=== PATIENT | male | born 1980 | race Caucasian/White ===

== ENCOUNTER 2020-10-29 10:58 | Inpatient (IN) ==
--- NOTE | 2020-10-29 11:03 | Emergency Department Note ---
History of Present Illness General Chief Complaint: Chest Pain Stated Complaint: RIGHT SIDED CHEST PAIN,SWEATING,DIZZY Time Seen by Provider: 10/29/20 11:01 Source: patient Mode of arrival: ambulatory Limitations: no limitations History of Present Illness Provider Complaint: chest pain Onset (ago): hour(s) 1 Duration: constant Pain Location: right chest Pain Radiation: neck Severity: moderate Maximum Pain Intensity: 7 Current Pain Intensity: 3 Quality: + tightness and + heaviness Relieved By: + rest Exacerbated By: + exertion Context: no recent illness, no recent surgery, no recent travel, no trauma/injury or no history of DVT/PE Associated symptoms: + nausea and + diaphoresis; no palpitations, no fever, no cough or no leg swelling Treatments prior to arrival: none Home Medications Medication Instructions Recorded Confirmed Type No Known Home Medications 10/29/20 10/29/20 History Allergies Allergy/AdvReac Type Severity Reaction Status Date / Time No Known Drug Allergies Allergy Unknown NONE Verified 10/29/20 13:46 Past Med/Surg History Medical History (Updated 10/29/20 @ 17:06 by Blake Alfred MD) DARA on CPAP ST elevation (STEMI) myocardial infarction involving left anterior descending coronary artery Surgical History History of arthroscopic knee surgery Family History Grandfather Heart disease Fatal [place] at age 38 Father Hypertension Mother Hypertension Social History Smoking Status: Never smoker Second Hand Exposure: No; Do You Dip or Chew Tobacco: No (Quit 4 years ago); Tobacco Cessation Education Requested by Patient: Yes Hx Alcohol Use: Yes Alcohol type: beer Hx Substance Use: No Preferred Language: Yi Communication Ability: Effective Operating Room Aide Required: No Beliefs That Will Affect Care: None Current Living Situation: Spouse and Family Current Living Situation Comment: 2 story home Other Information That Helps Us Care for You: No Feels Safe at Home: Yes Safety Concerns: Feels Safe At This Time Assistive Devices: Contacts and CPAP Review of Systems See HPI for pertinent positives & negatives. and A total of 10 systems reviewed and were otherwise negative Physical Exam Vital Signs Vital Signs - 24 hr 10/29/20 11:03 10/29/20 11:21 10/29/20 11:25 Temperature 37 C Temperature Source Oral Pulse Rate 66 Pulse Rate [Apical] 68 67 Pulse Rate from SpO2 Sensor Pulse Rhythm Regular Pulse Rhythm [Apical] Pulse Strength Normal Pulse Strength [Apical] Respiratory Rate 20 12 11 L Respiratory Effort / Characteristics Non-Labored Spontaneous Respiratory Depth Normal Respiratory Pattern Regular Blood Pressure 144/104 H Blood Pressure [Left Arm] 110/74 111/68 Blood Pressure Mean 117 Blood Pressure Mean [Left Arm] 86 82 Blood Pressure Position Sitting Blood Pressure Position [Left Arm] Pulse Oximetry 96 96 95 Oxygen Delivery Method Room Air Room Air Room Air Sepsis Recent Fever Within 48 Hours No Sepsis New/Unexplained Change in Mental Status N/A Sepsis Action Taken by Nursing No Action Required 10/29/20 11:30 10/29/20 11:35 10/29/20 11:40 Temperature Temperature Source Pulse Rate Pulse Rate [Apical] 65 62 66 Pulse Rate from SpO2 Sensor Pulse Rhythm Pulse Rhythm [Apical] Pulse Strength Pulse Strength [Apical] Respiratory Rate 20 11 L 31 H Respiratory Effort / Characteristics Respiratory Depth Respiratory Pattern Blood Pressure Blood Pressure [Left Arm] 115/80 125/73 123/77 Blood Pressure Mean Blood Pressure Mean [Left Arm] 91 90 92 Blood Pressure Position Blood Pressure Position [Left Arm] Pulse Oximetry 95 94 95 Oxygen Delivery Method Room Air Room Air Room Air Sepsis Recent Fever Within 48 Hours Sepsis New/Unexplained Change in Mental Status Sepsis Action Taken by Nursing 10/29/20 13:15 10/29/20 13:23 Temperature 36.6 C 36.6 C Temperature Source Oral Pulse Rate 79 Pulse Rate [Apical] 76 Pulse Rate from SpO2 Sensor 79 Pulse Rhythm Pulse Rhythm [Apical] Regular Pulse Strength Pulse Strength [Apical] Normal Respiratory Rate 23 25 H Respiratory Effort / Characteristics Non-Labored Respiratory Depth Normal Respiratory Pattern Regular Blood Pressure 137/80 Blood Pressure [Left Arm] 137/80 Blood Pressure Mean 96 Blood Pressure Mean [Left Arm] 99 Blood Pressure Position Blood Pressure Position [Left Arm] Lying Pulse Oximetry 96 98 Oxygen Delivery Method Room Air Sepsis Recent Fever Within 48 Hours Sepsis New/Unexplained Change in Mental Status Sepsis Action Taken by Nursing GENERAL: Diaphoretic, mild distress. EYE EXAM: Normal conjunctiva. PERRL, no anisocoria and EOM's grossly intact w/o pain. OROPHARYNX: Moist mucus membranes. Grossly normal dentition. NECK: Supple, no nuchal rigidity, no adenopathy, non-tender. No signs of meningismus. LUNGS: Clear to auscultation. Normal chest wall mechanics. HEART: NSR, no MRG. ABDOMEN: Abdomen soft, non-tender, normo-active bowel sounds, no masses, no rebound or guarding. BACK: No CVA TTP. SKIN: No rashes and no bruising. UPPER EXTREMITIES: Upper extremities are grossly normal. LOWER EXTREMITIES: Grossly normal, no edema. Negative Homans' sign bilaterally. NEURO EXAM: A&O x3, cranial nerves II-XII grossly intact, normal speech, moves all 4 extremities on command w/o issue. Course Course Cardiac monitoring: An order was placed for continuous cardiac monitoring. The monitor shows a rate of 71 with sinus rhythm. Administered Medications Nitroglycerin (Nitroglycerin Sl 0.4 Mg/Tab Tab) 0.4 mg SL Q5M PRN PRN Reason: Chest Pain Last Admin: 10/29/20 11:19 Dose: 0.4 mg Documented by: [id number] Discontinued Medications Aspirin (Aspirin Chew 324 Mg) Confirm Administered Dose 324 mg .ROUTE .STK-MED ONE Stop: 10/29/20 11:09 Last Admin: 10/29/20 11:09 Dose: 324 mg Documented by: [id number] Aspirin (Aspirin Chew 324 Mg) 324 mg PO NOW STA Stop: 10/29/20 11:10 Last Admin: 10/29/20 11:18 Dose: Not Given Documented by: [id number] Clopidogrel Bisulfate (Clopidogrel Bisulfate 300 Mg Tab) 300 mg PO NOW STA Stop: 10/29/20 11:10 Last Admin: 10/29/20 11:19 Dose: 300 mg Documented by: [id number] Dopamine HCl/Dextrose (Dopamine 400mg / 250ml D5w ([facility] Use Only)) Confirm Administered Dose 400 mg .ROUTE .STK-MED ONE Stop: 10/29/20 12:44 Last Admin: 10/29/20 14:17 Dose: Not Given Documented by: [id number] Eptifibatide (Eptifibatide 2 Mg/Ml 10 Ml Vial ([facility] Use Only)) Confirm Administered Dose 40 mg IV .STK-MED ONE Stop: 10/29/20 12:40 Last Admin: 10/29/20 14:17 Dose: Not Given Documented by: [id number] Eptifibatide (Eptifibatide 2 Mg/Ml 10 Ml Vial ([facility] Use Only)) Confirm Administered Dose 20 mg IV .STK-MED ONE Stop: 10/29/20 12:40 Last Admin: 10/29/20 14:17 Dose: Not Given Documented by: [id number] Fentanyl Citrate (Fentanyl Citrate 100 Mcg/2 Ml Vial) Confirm Administered Dose 100 mcg .ROUTE .STK-MED ONE Stop: 10/29/20 11:29 Last Admin: 10/29/20 14:15 Dose: Not Given Documented by: [id number] Heparin Sodium (Porcine) (Heparin (Porcine) 1000 Unit/Ml 10 Ml ([facility] Use Only)) Confirm Administered Dose 10,000 units .ROUTE .STK-MED ONE Stop: 10/29/20 11:29 Last Admin: 10/29/20 14:16 Dose: Not Given Documented by: [id number] Heparin Sodium (Porcine) (Heparin (Porcine) 1000 Unit/Ml 10 Ml ([facility] Use Only)) Confirm Administered Dose 10,000 units .ROUTE .STK-MED ONE Stop: 10/29/20 12:17 Last Admin: 10/29/20 14:17 Dose: Not Given Documented by: [id number] Heparin Sodium/Sodium Chloride (Heparin In Nss Infusion 1000 Unit/500 Ml (2 U/Ml) Bag) Confirm Administered Dose 3,000 units IV .STK-MED ONE Stop: 10/29/20 11:29 Last Admin: 10/29/20 14:16 Dose: Not Given Documented by: [id number] Sodium Chloride (Nss 1000ml) 1,000 mls @ 100 mls/hr IV .Q10H REBECCA Stop: 11/28/20 13:29 Last Infusion: 10/29/20 15:20 Dose: 0 mls/hr Documented by: [id number] Admin: 10/29/20 14:33 Dose: 100 mls/hr Documented by: [id number] Midazolam HCl (Midazolam Hcl 1 Mg/Ml 2ml Vial) Confirm Administered Dose 2 mg .ROUTE .STK-MED ONE Stop: 10/29/20 11:29 Last Admin: 10/29/20 14:16 Dose: Not Given Documented by: [id number] Nicardipine HCl (Nicardipine Hcl Inj 2.5 Mg/Ml 10 Ml Amp) Confirm Administered Dose 25 mg .ROUTE .STK-MED ONE Stop: 10/29/20 11:29 Last Admin: 10/29/20 14:16 Dose: Not Given Documented by: [id number] Nitroglycerin (Nitroglycerin Sl 0.4 Mg/Tab Tab) Confirm Administered Dose 0.4 mg .ROUTE .STK-MED ONE Stop: 10/29/20 11:09 Last Admin: 10/29/20 11:09 Dose: 0.4 mg Documented by: [id number] Nitroglycerin/Dextrose (Nitroglycerin/D5w 100mcg/Ml 20ml Syr) Confirm Administered Dose 2,000 mcg .ROUTE .STK-MED ONE Stop: 10/29/20 11:29 Last Admin: 10/29/20 14:16 Dose: Not Given Documented by: [id number] Medical Decision Making Differential Diagnosis Cardiac ischemia, aortic dissection, pulmonary embolism, pneumothorax, pneumonia, pericarditis, myocarditis, esophageal rupture, GERD, cholecystitis, pancreatitis, musculoskeletal, as well as other pathologies. Medical Records Attestation: I reviewed the patient's medical records. Home Medications Current Medication List: was personally reviewed by me Laboratory Data Attestation: I reviewed the patient's lab results. Result diagrams: 10/29/20 11:05 10/29/20 11:05 Labs: Lab Results 10/29/20 10/29/20 10/29/20 Range/Units 11:05 11:05 11:05 WBC 7.96 (4.8-10.8) K/uL RBC 5.13 (4.7-6.1) M/uL Hgb 16.5 (14.0-18.0) g/dL POC Hgb (14.0-18.0) g/dl Hct 47.0 (42-52) % POC Hct (42-52) % MCV 91.6 (80-100) fL MCH 32.2 (25-34) pg MCHC 35.1 (32-36) g/dL RDW Std Deviation 40.1 (36.4-46.3) fL RDW Coeff of Lianet 11.9 (11.5-14.5) % Plt Count 261 (130-400) K/uL MPV 9.7 (7.4-10.4) fL Immature Gran % (Auto) 0.3 % Neut % (Auto) 59.6 % Lymph % (Auto) 32.3 % Isabella % (Auto) 6.0 % Eos % (Auto) 1.5 % Baso % (Auto) 0.3 % Neut # (Auto) 4.75 (1.4-6.5) K/uL Lymph # (Auto) 2.57 (1.2-3.4) K/uL Isabella # (Auto) 0.48 (0.11-0.59) K/uL Eos # (Auto) 0.12 (0-0.5) K/uL Baso # (Auto) 0.02 (0-0.2) K/uL Immature Gran # (Auto) 0.02 (0.00-0.02) K/uL PT 10.7 (9.0-12.0) Seconds INR 1.1 (0.9-1.1) APTT 22.3 (21.0-31.0) Seconds PTT Ratio 0.8 Activ Coag Time Kaolin (94-140) SECONDS POC Sodium (135-144) mmol/L Sodium 140 (136-145) mmol/L POC Potassium (3.3-5.0) mmol/L Potassium 4.2 (3.5-5.1) mmol/L POC Chloride (101-112) mmol/L Chloride 107 (98-107) mmol/L Carbon Dioxide 28 (21-32) mmol/L POC Total CO2 (24-31) mmol/L Anion Gap 5.0 (3-11) POC Anion Gap (16-25) mmol/L POC BUN (7-18) mg/dl BUN 17 (7-18) mg/dl Creatinine 1.07 (0.6-1.4) mg/dl POC Creatinine (0.6-1.3) mg/dl Est Cr Clr Drug Dosing 123.5 ml/min Est GFR ( Amer) 100.1 ml/min Est GFR (Non-Af Amer) 86.4 ml/min BUN/Creatinine Ratio 15.5 (10-20) Glucose 125 H (70-99) mg/dl POC Glucose (other) (70-99) mg/dl Calcium 9.1 (8.5-10.1) mg/dl POC Ioniz Calcium Juan Jose (1.12-1.32) mmol/l Magnesium 2.2 (1.8-2.4) mg/dl Total Bilirubin 0.8 (0.2-1) mg/dl AST 17 (15-37) U/L ALT 40 (12-78) U/L Alkaline Phosphatase 75 (45-117) U/L Total Creatine Kinase 176 (39-308) U/L CK-MB (CK-2) 4.0 H (0.5-3.6) ng/ml CK/CKMB % Calc 2.3 (0-3.0) Troponin I 0.261 H* (0-0.045) ng/ml Total Protein 8.0 (6.4-8.2) gm/dl Albumin 4.2 (3.4-5.0) gm/dl Globulin 3.8 (2.5-4.0) gm/dl Albumin/Globulin Ratio 1.1 (0.9-2) Lipase 78 (73-393) U/L TSH 1.200 (0.300-4.500) uIu/ml COVID-19 Eval Order SARS-CoV-2, RNA, NAAT (NEGATIVE) 10/29/20 10/29/20 10/29/20 Range/Units 11:05 11:05 11:14 WBC (4.8-10.8) K/uL RBC (4.7-6.1) M/uL Hgb (14.0-18.0) g/dL POC Hgb 16.3 (14.0-18.0) g/dl Hct (42-52) % POC Hct 48 (42-52) % MCV (80-100) fL MCH (25-34) pg MCHC (32-36) g/dL RDW Std Deviation (36.4-46.3) fL RDW Coeff of Lianet (11.5-14.5) % Plt Count (130-400) K/uL MPV (7.4-10.4) fL Immature Gran % (Auto) % Neut % (Auto) % Lymph % (Auto) % Isabella % (Auto) % Eos % (Auto) % Baso % (Auto) % Neut # (Auto) (1.4-6.5) K/uL Lymph # (Auto) (1.2-3.4) K/uL Isabella # (Auto) (0.11-0.59) K/uL Eos # (Auto) (0-0.5) K/uL Baso # (Auto) (0-0.2) K/uL Immature Gran # (Auto) (0.00-0.02) K/uL PT (9.0-12.0) Seconds INR (0.9-1.1) APTT (21.0-31.0) Seconds PTT Ratio Activ Coag Time Kaolin (94-140) SECONDS POC Sodium 144 (135-144) mmol/L Sodium (136-145) mmol/L POC Potassium 4.3 (3.3-5.0) mmol/L Potassium (3.5-5.1) mmol/L POC Chloride 104 (101-112) mmol/L Chloride (98-107) mmol/L Carbon Dioxide (21-32) mmol/L POC Total CO2 25 (24-31) mmol/L Anion Gap (3-11) POC Anion Gap 20.0 (16-25) mmol/L POC BUN 17 (7-18) mg/dl BUN (7-18) mg/dl Creatinine (0.6-1.4) mg/dl POC Creatinine 1.1 (0.6-1.3) mg/dl Est Cr Clr Drug Dosing ml/min Est GFR ( Amer) ml/min Est GFR (Non-Af Amer) ml/min BUN/Creatinine Ratio (10-20) Glucose (70-99) mg/dl POC Glucose (other) 126 H (70-99) mg/dl Calcium (8.5-10.1) mg/dl POC Ioniz Calcium Juan Jose 1.07 L (1.12-1.32) mmol/l Magnesium (1.8-2.4) mg/dl Total Bilirubin (0.2-1) mg/dl AST (15-37) U/L ALT (12-78) U/L Alkaline Phosphatase (45-117) U/L Total Creatine Kinase (39-308) U/L CK-MB (CK-2) (0.5-3.6) ng/ml CK/CKMB % Calc (0-3.0) Troponin I (0-0.045) ng/ml Total Protein (6.4-8.2) gm/dl Albumin (3.4-5.0) gm/dl Globulin (2.5-4.0) gm/dl Albumin/Globulin Ratio (0.9-2) Lipase (73-393) U/L TSH (0.300-4.500) uIu/ml COVID-19 Eval Order Covid19 [facility] SARS-CoV-2, RNA, NAAT NEGATIVE (NEGATIVE) 10/29/20 10/29/20 Range/Units 12:12 12:36 WBC (4.8-10.8) K/uL RBC (4.7-6.1) M/uL Hgb (14.0-18.0) g/dL POC Hgb (14.0-18.0) g/dl Hct (42-52) % POC Hct (42-52) % MCV (80-100) fL MCH (25-34) pg MCHC (32-36) g/dL RDW Std Deviation (36.4-46.3) fL RDW Coeff of Lianet (11.5-14.5) % Plt Count (130-400) K/uL MPV (7.4-10.4) fL Immature Gran % (Auto) % Neut % (Auto) % Lymph % (Auto) % Isabella % (Auto) % Eos % (Auto) % Baso % (Auto) % Neut # (Auto) (1.4-6.5) K/uL Lymph # (Auto) (1.2-3.4) K/uL Isabella # (Auto) (0.11-0.59) K/uL Eos # (Auto) (0-0.5) K/uL Baso # (Auto) (0-0.2) K/uL Immature Gran # (Auto) (0.00-0.02) K/uL PT (9.0-12.0) Seconds INR (0.9-1.1) APTT (21.0-31.0) Seconds PTT Ratio Activ Coag Time Kaolin 202 H 235 H (94-140) SECONDS POC Sodium (135-144) mmol/L Sodium (136-145) mmol/L POC Potassium (3.3-5.0) mmol/L Potassium (3.5-5.1) mmol/L POC Chloride (101-112) mmol/L Chloride (98-107) mmol/L Carbon Dioxide (21-32) mmol/L POC Total CO2 (24-31) mmol/L Anion Gap (3-11) POC Anion Gap (16-25) mmol/L POC BUN (7-18) mg/dl BUN (7-18) mg/dl Creatinine (0.6-1.4) mg/dl POC Creatinine (0.6-1.3) mg/dl Est Cr Clr Drug Dosing ml/min Est GFR ( Amer) ml/min Est GFR (Non-Af Amer) ml/min BUN/Creatinine Ratio (10-20) Glucose (70-99) mg/dl POC Glucose (other) (70-99) mg/dl Calcium (8.5-10.1) mg/dl POC Ioniz Calcium Juan Jose (1.12-1.32) mmol/l Magnesium (1.8-2.4) mg/dl Total Bilirubin (0.2-1) mg/dl AST (15-37) U/L ALT (12-78) U/L Alkaline Phosphatase (45-117) U/L Total Creatine Kinase (39-308) U/L CK-MB (CK-2) (0.5-3.6) ng/ml CK/CKMB % Calc (0-3.0) Troponin I (0-0.045) ng/ml Total Protein (6.4-8.2) gm/dl Albumin (3.4-5.0) gm/dl Globulin (2.5-4.0) gm/dl Albumin/Globulin Ratio (0.9-2) Lipase (73-393) U/L TSH (0.300-4.500) uIu/ml COVID-19 Eval Order SARS-CoV-2, RNA, NAAT (NEGATIVE) ECG Data Additional Comments: Normal sinus rhythm, rate of 61, normal intervals, normal axis, T wave inversion in lead III, peaked waves anteriorly and laterally. Conc volodymyr for acute STEMI. MDM Narrative Patient was seen due to concern for acute chest pain that began 1 hour prior to arrival. Patient has no pertinent history but the patient does have a concerning story. EKG does show concern for peaked T waves anteriorly with maybe slight elevation of V1. After seeing the EKG a code heartily was initiated. The patient was ordered aspirin Plavix load and nitro. Patient denies any infectious symptoms. The patient only has a history of his grandfather having an [place] in his 30s and passing away. Patient has had a prior history of Covid. No history of DVT or PE. Upon reassessment the patient did have improvement in his chest pain with nitro. The patient did receive the aspirin and Plavix. Patient has a normal white count H&H and platelet count. Kidney function is unremarkable. Troponin is 0.2. I did briefly speak with the interventional is Dr. Gonzalez and the patient was subsequently taken to the [facility]. I did speak with the on-call hospitalist to [facility] and the patient was to be admi tted by Dr. Reddy. Impression & Plan ST elevation (STEMI) myocardial infarction, ACS (acute coronary syndrome) Critical Care Time Critical Care Time: Yes Total Critical Care Time: 35 Discharge Plan Visit Data Chief Complaint: Chest Pain Stated Complaint: RIGHT SIDED CHEST PAIN,SWEATING,DIZZY ED Provider: Blake Alfred Discharge Problem: ST elevation (STEMI) myocardial infarction, ACS (acute coronary syndrome) Patient Disposition: Admitted As Inpatient Discharge Instructions Interventions: ED Discharge Assessment Last Done: 10/29/20 11:43
[2020-10-29] MEDS ORDERED: NITROGLYCERIN SL 0.4 MG/TAB TAB ONE (11:08)
[2020-10-29] MEDS ORDERED: ASPIRIN CHEW 324 MG ONE (11:08)
[2020-10-29] MEDS ORDERED: NITROGLYCERIN SL 0.4 MG/TAB TAB SL PRN (11:09)
[2020-10-29] MEDS ORDERED: ASPIRIN CHEW 324 MG PO STA (11:09)
[2020-10-29] MEDS ORDERED: CLOPIDOGREL BISULFATE 300 MG TAB PO STA (11:09)
[2020-10-29 11:19] LABS: Basophils # (auto) 0.02 K/uL (0-0.2); Basophils % (auto) 0.3 %; Eosinophils # (auto) 0.12 K/uL (0-0.5); Eosinophils % (auto) 1.5 %; Hemoglobin 16.5 g/dL (14.0-18.0); Immature Granulocytes # (auto) 0.02 K/uL (0.00-0.02); Immature Granulocytes % (auto) 0.3 %; Lymphocytes # (auto) 2.57 K/uL (1.2-3.4); Lymphocytes % (auto) 32.3 %; Mean Corpuscular Hemoglobin 32.2 pg (25-34); Mean Corpuscular Hgb Conc 35.1 g/dL (32-36); Mean Corpuscular Volume 91.6 fL (80-100); Mean Platelet Volume 9.7 fL (7.4-10.4); Monocytes # (auto) 0.48 K/uL (0.11-0.59); Neutrophils # (auto) 4.75 K/uL (1.4-6.5); Neutrophils % (auto) 59.6 %; Platelet Count 261 K/uL (130-400); RDW Coefficient of Variation 11.9 % (11.5-14.5); RDW Standard Deviation 40.1 fL (36.4-46.3); Red Blood Count 5.13 M/uL (4.7-6.1); White Blood Count 7.96 K/uL (4.8-10.8)
[2020-10-29 11:27] LABS: iSTAT Creatinine 1.1 mg/dl (0.6-1.3); iSTAT Hemoglobin 16.3 g/dl (14.0-18.0); iSTAT Ionized Calcium 1.07 mmol/l (1.12-1.32); iSTAT Potassium 4.3 mmol/L (3.3-5.0)
[2020-10-29] MEDS ORDERED: NITROGLYCERIN/D5W 100MCG/ML 20ML SYR ONE (11:28)
[2020-10-29] MEDS ORDERED: MIDAZOLAM HCL 1 MG/ML 2ML VIAL ONE (11:28)
[2020-10-29] MEDS ORDERED: fentaNYL citrate 100 MCG/2 ML VIAL ONE (11:28)
[2020-10-29] MEDS ORDERED: HEPARIN (PORCINE) 1000 UNIT/ML 10 ML (CATH LAB USE ONLY) ONE ×2 (11:28→12:16)
[2020-10-29] MEDS ORDERED: niCARdipine HCL INJ 2.5 MG/ML 10 ML AMP ONE (11:28)
[2020-10-29 11:30] LABS: INR 1.1 (0.9-1.1); Partial Thromboplastin Ratio 0.8; Partial Thromboplastin Time 22.3 Seconds (21.0-31.0); Prothrombin Time 10.7 Seconds (9.0-12.0)
[2020-10-29 11:40] LABS: Albumin Level 4.2 gm/dl (3.4-5.0); BUN Creatinine Ratio 15.5 (10-20); Calcium 9.1 mg/dl (8.5-10.1); Creatinine Clr Calc Pharmacy 123.5 ml/min; Est GFR (African American) 100.1 ml/min; Est GFR (Non-African American) 86.4 ml/min; Magnesium 2.2 mg/dl (1.8-2.4); Potassium 4.2 mmol/L (3.5-5.1)
--- NOTE | 2020-10-29 11:49 | Pre Anesthesia Assessment ---
Date of Service October 29, 2020 Pre Sedation Assessment Vital Signs Temp Pulse Pulse Resp BP BP Pulse Ox 10/29/20 11:30 65 20 115/80 95 10/29/20 11:25 67 11 L 111/68 95 10/29/20 11:21 68 12 110/74 96 10/29/20 11:03 98.6 F 66 20 144/104 H 96 Cardiovascular RRR, no murmur, no edema Respiratory normal respiratory effort, lungs clear to auscultation Pre-Sedation Airway Assessment Smoking Status: Never smoker Hx Sleep Apnea: No Hx Difficult Intubation: No Short, Thick Neck: No Thyromental Distance: > or= 3.5 Finger Breadths Oral Cavity: + WNL Mallampati Class: III ASA: ASA3 Procedure Planning Contraindications for Sedation: none Current Medications Reviewed: Yes Notes The planned sedation has been discussed with the patient. Informed Consent was obtained. I have identified the patient, determined the appropriateness of sedation and have assessed the patient immediately prior to the procedure. All medicine(s) and interventions are by my order.
--- NOTE | 2020-10-29 11:54 | Cardiology Consultation ---
Date of Consultation October 29, 2020 Assessment & Plan (1) ACS (acute coronary syndrome): Presentation consistent with high risk acute coronary syndrome and recommend proceeding with urgent cardiac catheterization and likely primary PCI. No apparent contraindications to procedure. Discussed risks, benefits, alternatives of procedure with patient and they are willing to proceed. Given clopidogrel in the ED. Further recommendations pending findings of coronary angiography. History of Present Illness Reason for Consultation: Chest pain Requesting Physician: Tima History of Present Illness 40-year-old man here with acute chest pain and ECG concerning for acute SD. Patient seen emergently in the ED after heart alert activated upon arrival. No prior cardiac history. Cardiac risk factors include reported hypertension and family history of CAD involving a grandfather who had an SD in his 30s. Other medical issues include mild obstructive sleep apnea. He is on no medications. Describes chest pain radiating to his right neck yesterday well chopping wood. Symptoms resolved with rest and did not recur again until this morning when again with exertion developed chest/right neck pain with associated arm numbness and diaphoresis. Pain lasted for approximately an hour before arrival to ED. On ECG had borderline anterior ST elevations with peaked T waves. Given aspirin, nitro and 300 of clopidogrel in ED. Chest pain currently 1 out of 10. Hemodynamically stable. Allergies Allergy/AdvReac Type Severity Reaction Status Date / Time No Known Drug Allergies Allergy Unknown NONE Verified 10/29/20 13:46 Home Medications Medication Instructions Recorded Confirmed Type No Known Home Medications 10/29/20 10/29/20 History Patient History Family History (Updated 10/29/20 @ 11:16 by Blake Alfred MD) Grandfather Heart disease Social History (Updated 10/29/20 @ 11:19 by Blake Alfred MD) Smoking Status: Never smoker Second Hand Exposure: No; Do You Dip or Chew Tobacco: No (Quit 4 years ago); Tobacco Cessation Education Requested by Patient: Yes Hx Alcohol Use: Yes Alcohol type: beer Hx Substance Use: No Preferred Language: Citizen Of [place] Communication Ability: Effective Privacy Compliance Manager Required: No Beliefs That Will Affect Care: None Current Living Situation: Spouse and Family Current Living Situation Comment: 2 story home Other Information That Helps Us Care for You: No Feels Safe at Home: Yes Safety Concerns: Feels Safe At This Time Assistive Devices: Contacts and CPAP Review of Systems Review of Systems: Not completed in the setting of emergent situation Physical Exam Physical Exam: General: Comfortable, no acute distress HEENT: Sclerae anicteric Lungs: Clear to auscultation bilaterally Cardiac: Regular rate and rhythm, no murmurs. Abdomen: Soft, nontender Extremities: Warm, well perfused, no edema. 2+ radial pulses Skin: No rashes or lesions. Neuro: Nonfocal Psych: Alert orient x3, normal affect and mood Results & Data ([facility]) Vital Signs (Past 12 Hours) Vital Signs Temp Pulse Pulse Resp BP BP Pulse Ox 10/29/20 11:30 65 20 115/80 95 10/29/20 11:25 67 11 L 111/68 95 10/29/20 11:21 68 12 110/74 96 10/29/20 11:03 98.6 F 66 20 144/104 H 96 PG Care Time/CCT Total # of Minutes Spent Total Time Spent with Patient: Total time spent is greater than 50% in coordination of care (as documented) at patient's floor/unit and/or counseling patient: Coding Level of Care Code 01607 Inpt Consult Level 5 Diagnoses ACS (acute coronary syndrome) I24.9
[2020-10-29 11:56] LABS: Albumin Globulin Ratio 1.1 (0.9-2); Bilirubin,Total 0.8 mg/dl (0.2-1); Globulin 3.8 gm/dl (2.5-4.0); Thyroid Stimulating Hormone 1.2 uIu/ml (0.300-4.500); Troponin I 0.261 ng/ml (0-0.045)
--- NOTE | 2020-10-29 12:23 | XRay Report ---
XR chest 1V portable CLINICAL HISTORY: Chest pain COMPARISON STUDY: No previous studies for comparison. FINDINGS: No pneumothorax. No definite pleural effusion is seen however evaluation is limited because the right costophrenic ang le is partially outside the [id number]. No large infiltrates or consolidative lesions are seen. Lung volumes are decreased with crowded lung markings. Cardiomediastinal silhouette is within normal limits in size. No significant pulmonary vascular congestion.. Osseous structures: Degenerative changes of the spine. IMPRESSION: 1. No acute pulmonary process. Limited exam. ACT 112: Negative or not required by law. The above report was generated using voice recognition software. It may contain grammatical, syntax o r spelling errors. Electronically signed by: Sherron Woods DO 10/29/2020 12:22 PM
[2020-10-29] MEDS ORDERED: EPTIFIBATIDE 2 MG/ML 10 ML VIAL (CATH LAB USE ONLY) IV ONE ×2 (12:39)
[2020-10-29] MEDS ORDERED: DOPamine 400MG / 250ML D5W (Cath Lab Use ONLY) ONE (12:43)
[2020-10-29] MEDS ORDERED: ONDANSETRON INJ 2 MG/ML 2 ML VIAL IV PRN (13:21)
[2020-10-29] MEDS ORDERED: ICU PROTOCOL FOR HYPERGLYCEMIA PRN (13:26)
[2020-10-29] MEDS ORDERED: SODIUM CHLORIDE 0.9% 1000ML 1,000 ML IV SCH (13:30)
--- NOTE | 2020-10-29 15:01 | Post Anesthesia Assessment ---
Date of Service October 29, 2020 Post Sedation Assessment Vital Signs Temp Pulse Pulse Resp BP BP Pulse Ox 10/29/20 14:16 85 27 H 139/84 97 10/29/20 14:00 82 30 H 142/89 H 98 10/29/20 13:23 97.8 F 76 25 H 137/80 98 10/29/20 13:15 97.8 F 79 23 137/80 96 10/29/20 11:40 66 31 H 123/77 95 10/29/20 11:35 62 11 L 125/73 94 10/29/20 11:30 65 20 115/80 95 10/29/20 11:25 67 11 L 111/68 95 10/29/20 11:21 68 12 110/74 96 10/29/20 11:03 98.6 F 66 20 144/104 H 96 Recovery Score Activity: Moves 4 extremities Respiration: Deep Breath/Cough Circulation: +/-20% PreAnes Value Consciousness: Fully Awake Oxygen Saturation: O2 needed for >90% Discharge Sedation Level of Care: Fast Track Phase II Post Sedation Plan On clinical assessment, the patient appears to have tolerated the sedation without complications. Patient is recovering as anticipated. Patient will continue to be monitored by nursing and may be discharged when sedation discharge criteria are met per below protocol. Upon Completions of procedure up to 15 minutes continue every 5 minute vital signs and the P.A.R. score; then discharge to a Phase I or Fast Track to Phase II per the following guidelines: * Discharge Patient to appropriate Phase II area if PAR is 8 or greater or return to pre- procedure baseline. The post - procedure orders will be as directed. * If PAR score is less than 8 or not return to pre-procedure baseline then patient will follow Phase I monitoring till PAR is reached for Phase II. The Phase I may be done in procedure room or may call to secure a Phase I area. * If naloxone or flumazenil are used for reversal, hold in Phase I for continued monitoring from when last reversal dose was given for a minimum of 60 minutes or longer pending the nurse and/or physician discretion of patient condition before discharge to Phase II. Please call the Sedation Physician to re-evaluate and complete post-note for discharge to Phase II area. Do NOT discharge from procedure sedation or Phase 1 until post- sedation evaluation note is complete by procedure /sedation MD Sedation Discharge Instructions to be given to the patient at discharge to home.
--- NOTE | 2020-10-29 15:08 | History & Physical Report ---
Date of Service October 29, 2020 Assessment & Plan (1) ACS (acute coronary syndrome): Plan: -Admitted to ICU post cardiac cath -Presented to ED with reports of right-sided chest, neck, axilla pain. EKG showed borderline anterior ST elevations with peaked T waves. Heart alert called and patient taken to cardiac Commercial Real Estate Sales Manager emergently. Received 2 NEHEMIAH to LAD, also noted to have RCA disease, likely will return to cardiac Commercial Real Estate Sales Manager for staged cardiac cath for treatment of RCA disease. -ASA, ticagrelor, metoprolol, lisinopril, atorvastatin, ordered by interventional cardiology -Echo, trend troponin -[facility] cardiology consult to follow along (2) DARA on CPAP: Plan: -CPAP as per home settings (3) DVT prophylaxis: Plan: -SCDs Admission and Anticipated Discharge Date Admission Date: October 29, 2020 History of Present Illness Chief Complaint: Chest pain Primary Care Provider: Richi Mitchell MD 40-year-old male with PMH DARA on CPAP and other problems listed below who presents the ED for evaluation of chest pain. Patient reports that yesterday he was chopping wood when he developed a right-sided neck pain. He thought it was secondary to his activity. This morning, patient started chopping wood again and the right side neck pain returned. He reports he then developed a right- sided chest pain with radiation to the right axilla. Patient reports associated diaphoresis and shortness of breath. Denies nausea, lightheadedness, dizziness, syncopal event. He then presented to the ED for further evaluation. In the ED, EKG showed borderline anterior ST elevations with peaked T waves. Heart alert was called and patient was taken to cardiac Commercial Real Estate Sales Manager for emergent catheterization. He received 2 drug-eluting stents to LAD. He was also noted to have RCA disease as well. Likely will return to Commercial Real Estate Sales Manager for staged cardiac cath to treat RCA disease. Patient was seen and examined in the ICU post cardiac cath. Denies chest pain. He is hemodynamically stable. Patient reports he otherwise has been feeling well recently. No other recent illnesses, fevers, chills. Denies abdominal pain, vomiting, diarrhea. No urinary symptoms. Allergies Allergy/AdvReac Type Severity Reaction Status Date / Time No Known Drug Allergies Allergy Unknown NONE Verified 10/29/20 13:46 Home Medications Medication Instructions Recorded Confirmed Type No Known Home Medications 10/29/20 10/29/20 History Past Med/Surg History Medical History (Updated 10/29/20 @ 15:42 by Flako Diaz MD) DARA on CPAP ST elevation (STEMI) myocardial infarction involving left anterior descending coronary artery Surgical History History of arthroscopic knee surgery Family History Grandfather Heart disease Fatal [place] at age 38 Father Hypertension Mother Hypertension Social History Smoking Status: Never smoker Second Hand Exposure: No; Do You Dip or Chew Tobacco: No (Quit 4 years ago); Tobacco Cessation Education Requested by Patient: Yes Hx Alcohol Use: Yes Alcohol type: beer Hx Substance Use: No Preferred Language: Armenian Communication Ability: Effective Aix Architect Required: No Beliefs That Will Affect Care: None Current Living Situation: Spouse and Family Current Living Situation Comment: 2 story home Other Information That Helps Us Care for You: No Feels Safe at Home: Yes Safety Concerns: Feels Safe At This Time Assistive Devices: Contacts and CPAP Review of Systems Review of Systems: ROS per HPI, all other systems reviewed and negative Physical Exam Constitutional: WD/WN, vitals as above Eyes: PERRL, conjunctivae normal, anicteric sclerae ENMT: external ear and nose normal, oropharynx normal Respiratory: normal respiratory effort, lungs clear to auscultation Cardiovascular: Rate/Rhythm: regular rate and regular rhythm Vessels: normal peripheral pulses Extremities: no edema Gastrointestinal (Abdomen): normal bowel sounds, soft, nontender, no hepatosplenomegaly Musculoskeletal: no cyanosis or clubbing, extremities motor strength 5/[address] to right wrist, CSM checks intact Skin: no rashes, warm and dry Neurologic: PERRL, EOMI, accommodation nl, no face palsy, no dysarthria Psychiatric: A+Ox3, euthymic affect Results & Data Results & Data ([facility]) Vital Signs (Past 12 Hours) Vital Signs Temp Pulse Pulse Resp BP BP Pulse Ox 10/29/20 14:16 85 27 H 139/84 97 10/29/20 14:00 82 30 H 142/89 H 98 10/29/20 13:23 36.6 C 76 25 H 137/80 98 10/29/20 13:15 36.6 C 79 23 137/80 96 10/29/20 11:40 66 31 H 123/77 95 10/29/20 11:35 62 11 L 125/73 94 10/29/20 11:30 65 20 115/80 95 10/29/20 11:25 67 11 L 111/68 95 10/29/20 11:21 68 12 110/74 96 10/29/20 11:03 37 C 66 20 144/104 H 96 Laboratory Results Short CBC 10/29/20 Range/Units 11:05 WBC 7.96 (4.8-10.8) K/uL Hgb 16.5 (14.0-18.0) g/dL Hct 47.0 (42-52) % Plt Count 261 (130-400) K/uL BMP 10/29/20 11:05 Sodium 140 Potassium 4.2 Chloride 107 Carbon Dioxide 28 BUN 17 Creatinine 1.07 Glucose 125 H Calcium 9.1 Cardiac Enzymes 10/29/20 Range/Units 11:05 Total Creatine Kinase 176 (39-308) U/L CK-MB (CK-2) 4.0 H (0.5-3.6) ng/ml Troponin I 0.261 H* (0-0.045) ng/ml Liver Function 10/29/20 Range/Units 11:05 Total Bilirubin 0.8 (0.2-1) mg/dl AST 17 (15-37) U/L ALT 40 (12-78) U/L Alkaline Phosphatase 75 (45-117) U/L Albumin 4.2 (3.4-5.0) gm/dl Diagnostic Findings Chest X-Ray 10/29/20 11:09 XR chest 1V portable CLINICAL HISTORY: Chest pain COMPARISON STUDY: No previous studies for comparison. FINDINGS: No pneumothorax. No definite pleural effusion is seen however evaluation is limited because the right costophrenic angle is partially outside the roeio-lt-kerc. No large infiltrates or consolidative lesions are seen. Lung volumes are decreased with crowded lung markings. Cardiomediastinal silhouette is within normal limits in size. No significant pulmonary vascular congestion.. Osseous structures: Degenerative changes of the spine. IMPRESSION: 1. No acute pulmonary process. Limited exam. ACT 112: Negative or not required by law. The above report was generated using voice recognition software. It may contain grammatical, syntax or spelling errors. Electronically signed by: Sherron Woods DO 10/29/2020 12:22 PM Code Status & VTE Plan VTE Prophylaxis Plan VTE Prophylaxis will be ordered: Yes Supervising Physician Co-Signing Physician Notes Attending addendum: The patient was seen and examined in ICU Is status post cardiac cath with 2 NEHEMIAH placement in LAD for acute possible ST elevation SC Has been feeling better and denies any chest pain and/or palpitation or shortness of breath On examination Remains stable in ICU Cardiac cath site at the right wrist seems to be stable Chest-clear to auscultate bilaterally HeartS1, S2 regular, no murmur appreciated Abdomen-benign Extremities-negative for any edema FLOOR LAYER HELPER-alert, awake and oriented x3. No focal sensory and motor deficit appreciated His admission labs, EKG and imaging studies reviewed Has acute ST elevation SC with hyperacute T wave Status post cardiac cath as above with NEHEMIAH placement in LAD Has been getting appropriate treatment with dual antiplatelet Will have repeat cath tomorrow to fix the RCA disease Reviewed assessment and plan as outlined above by Emili Reddy
--- NOTE | 2020-10-29 15:22 | Cardiac Catheterization ---
[facility] Data: [facility] Cardiac Status Clinical evaluation leading to the procedure CAD Presenation: STEMI Anginal Classification: CCS IV Heart Failure: No Cardiogenic Shock within 24 Hours: No Cardiac Arrest within 24 Hours: No Imaging Studies Past 6 Months: No Stress Studies Past 6 Months: No Diagnostic Physicians Name: Manoj Gonzalez MD Status: Emergency Closure Device Percutaneous Entry Location: Radial Closure Device: Radial Band Recommendations: PCI without planned CABG PCI Indication: Immediate PCI for STEMI First Noted: First EKG Lesion Segment Name: Mid LAD Culprit Artery: Yes Stenosis Prior to Rx (%): 100 Chronic Total Occlusion: No IVUS: No FFR: No Pre-Procedure RUDDY Flow: 0 Previously Treated Lesion: No Lesion Complexity: High/C Lesion Length (mm): 50 Thrombus Present: Yes Bifurcation Lesion: Yes Guidewire Across Lesion: Stenosis Post-Procedure (%): 0 Post-Procedure RUDDY Flow: 3 Devices(s) Deployed: Yes Yes Intraprocedure Events Significant Disection: No Perforation: No Cardiac Cath Procedure Full Procedure Date October 29, 2020 Pre-Procedure Diagnosis Pre-Procedure Diagnosis: STEMI AUC Score AUC Score: 9 Post-Procedure Diagnosis Post-Procedure Diagnosis: Severe CAD, Successful PCI and Elevated Intracardiac Pressures Procedure(s) Performed Procedure(s) Performed: Coronary Angiography, Left Heart Cath, Drug Eluting Stent and IVUS Outpatient Receptionist Manoj Gonzalez MD Talent Acquisition Manager(s) Elijah Estimated Blood Loss Estimated Blood Loss: 10 Medication(s) Medication(s): Clopidogrel, Fentanyl, Heparin, Integrilin, Lidocaine 1%, Nicardipine, Nitroglycerin and Versed Summary of Findings Indication: STEMI/Heart Alert Access: 6 Fr right radial artery Catheters: 5 Fr EBU 3.5 guide (unable to pass 6 Fr guide due to right brachial artery spasm), diagnostic JR4 Findings: LM -medium caliber, no significant disease LAD -medium caliber, mild diffuse proximal disease, acute 100% mid occlusion at takeoff of small D1. 80% ostial D1 Circumflex -large caliber, 20 to 30% proximal disease. Small OM 2 with mild disease. Large left PLB without disease. RCA -dominant, medium caliber, 50% mid stenosis, 40% earlydistal stenosis. 95% focal stenosis in proximal right posterior AV branch LVEDP - 22 -- PCI -- Antithrombotic therapy: Heparin, Integrilin, clopidogrel Procedure: Left main cannulated with a 5 Fr EBU 3.5 guide Manager Pe 50 wire passed across lesion into distal vessel Mid LAD lesion predilated with 2.5 compliant balloon and flow reestablished. Noted to have diffuse mid LAD disease. [facility] IVUS catheter placed into distal LAD. Pullback revealed extensive, diffuse calcified disease from late distal segment back to proximal LAD LAD further dilated with 3.0 balloon Latemid LAD stented with 2.5 x 30 mm Ronald drug-eluting stent Proximal to mid LAD stented with 3.0 x 38 mm Ronald drug-eluting stent overlapping with proximal aspect of initial stent. After stent placement had slow flow in apical LAD thought secondary to distal embolus. Given IC vasodilators and Integrilin. Stents post-dilated with 3.5 noncompliant balloon Additional IC vasodilators administered for spasm Post procedure RUDDY 3 flow, stent well expanded with minimal residual stenosis and no apparent cardiac complications. Arterial Closure: TR band Summary: 1. Anterior STEMI/100% acute mid LAD occlusion. Severe proximal to mid LAD disease by IVUS. 2. Multivessel nonculprit coronary artery disease -50% mid RCA, 95% right posterior AV branch 30% proximal circumflex 3. Elevated intracardiac filling pressure 4. Successful PCI of proximal to late-mid LAD with 2 overlapping drug-eluting stents (3.0 x 38, 2.5 x 30 Belk; postdilated with 3.5 NC). Recommendations: Admit to ICU for continued monitoring Loaded with clopidogrel 300 in ED, given another 300 mg in [facility] Continue dual-antiplatelet therapy for at least 1 year. Trend troponins until peak, Check Echo Uptitrate beta-princess/LUCI as BP allows High-dose statin Consult cardiac Rehab Possible staged PCI of right posterior AV branch later this hospitalization. Hemodynamics Rest Ao:: 114/82/92 Final Ao: 105/78/93 LV: 102/22 Recommendations Recommendations: PCI without planned CABG Specimens Specimens: None Radiation Exposure (mGy) 3756 Contrast (mls) 95 Fluids (cc crystalloids) Fluids (cc crystalloids): 400 Drains Drains: none Anesthesia moderate 7907-9113 Procedural Complication(s) None Disposition ICU I attest to the content of the Intraoperative Record and any orders documented therein. Any exceptions are noted below. [employer] Card Cath Procedure Codes Cardiac Catheterization Procedure 1: Cardiovascular Cath Procedures: 62276 Coronaries and LHC (+/-LV) Therapeutic Services & Ancillary Proc Procedure 1: Cardiovascular Tx and Anc Procedures: 63272 IV Ultrasound (Coronary or Graft) Moderate Sedation Procedure 1: Sedation/Anesthesia: 92725 Mod Sedation by the same physician;Init15 Min Child Age 5 & Up Procedure 2: Sedation/Anesthesia: 22396 Mod Sedation by the same physician; Ea [id number] Minutes Stenting Procedure 1: Cardiovascular Stent Procedures: 80796 Perc transluminal revascularization of acute sub/total occl, aMI PG Care Time/CCT Total # of Minutes Spent Total Time Spent with Patient: Total time spent is greater than 50% in co ordination of care (as documented) at patient's floor/unit and/or counseling patient:
--- NOTE | 2020-10-29 15:46 | Critical Care Consultation ---
Date of Consultation October 29, 2020 Assessment & Plan (1) ST elevation (STEMI) myocardial infarction involving left anterior descending coronary artery: 40-year-old male with a history of obesity and hypertension who is in the ICU now status post PCI x2 to the mid LAD. Patient is stable at present. Continue dual antiplatelet therapy. Cardiology changed his antiplatelet from Plavix to Brilinta. Continue with metoprolol, lisinopril and high-dose atorvastatin. He will need an echocardiogram. He will undergo repeat cardiac catheterization tomorrow to evaluate for the possibility of further stenting. We will keep a close eye on his urine output and creatinine. N.p.o. after midnight. Check lipid profile, trend troponins and check A1c. He does have a history of obstructive sleep apnea. His will bring the CPAP device. Thank you for the consultation. ICU team will continue to monitor while he remains in the ICU. (2) ACS (acute coronary syndrome): (3) DARA on CPAP: History of Present Illness Reason for Consultation: Post STEMI ICU monitoring Attending Physician: Jimbo Reddy MD History of Present Illness 40-year-old male with a history of obesity and obstructive sleep apnea who presented to the hospital with chest pain. He was found to have a STEMI in the anterior distribution and underwent catheterization of his left heart. Acute LAD occlusion was noted. Severe proximal to mid LAD was discovered by intravascular ultrasound. Patient underwent 2 overlapping stents to the proximal to late mid LAD. He was loaded with clopidogrel in the ER. He has a 50% mid RCA 95% right posterior AV branch blockage noted as well. He may undergo left heart catheterization tomorrow as well for further stenting per cardiology. He noted right-sided neck pain yesterday while lifting more than splitting wood. Today he was splitting more wood and noticed a twinge of pain behind his right shoulder. The pain became more progressive and severe was mostly localized on the right side of his neck which then radiated down to his right chest. His is present during the visit. She gave him Benadryl under the presumption that he was bit by an insect and was having an allergic reaction. She noted that they were considering going to urgent care versus the emergency department. He was feeling very dizzy and sweaty and they ultimately decided to go to the ER. His pain has subsided substantially now. He noted that it even hurt to touch his right neck during the episode of pain. Allergies Allergy/AdvReac Type Severity Reaction Status Date / Time No Known Drug Allergies Allergy Unknown NONE Verified 10/29/20 13:46 Home Medications Medication Instructions Recorded Confirmed Type No Known Home Medications 10/29/20 10/29/20 History Patient History Medical History (Updated 10/29/20 @ 15:42 by Flako Diaz MD) DARA on CPAP ST elevation (STEMI) myocardial infarction involving left anterior descending coronary artery Surgical History History of arthroscopic knee surgery Family History Grandfather Heart disease Fatal [place] at age 38 Father Hypertension Mother Hypertension Social History Smoking Status: Never smoker Second Hand Exposure: No; Do You Dip or Chew Tobacco: No (Quit 4 years ago); Tobacco Cessation Education Requested by Patient: Yes Hx Alcohol Use: Yes Alcohol type: beer Hx Substance Use: No Preferred Language: Belarusian Communication Ability: Effective Palm Gatherer Required: No Beliefs That Will Affect Care: None Current Living Situation: Spouse and Family Current Living Situation Comment: 2 story home Other Information That Helps Us Care for You: No Feels Safe at Home: Yes Safety Concerns: Feels Safe At This Time Assistive Devices: Contacts and CPAP Review of Systems Review of Systems: All systems reviewed & are unremarkable except as noted in HPI & below Physical Exam Physical Exam: Constitutional: Patient appears to be of their stated age. Patient is in no apparent distress. Patient is obese. Eyes: Pupils are equal round and reactive to light. Conjunctivae are normal. Anicteric sclera. Ears nose, mouth and throat: Normal posterior oropharynx. Uvula is midline. Neck: Trachea is midline. Visual inspection is normal. Respiratory: Clear to auscultation bilaterally. No use of accessory muscles. No significant clubbing noted. Cardiovascular: Regular rate and rhythm. No murmurs. No edema. Gastrointestinal: Normal bowel sounds, soft, nontender and nondistended. No hepatosplenomegaly noted. Musculoskeletal: No cyanosis. Patient is able to move all extremities. Strength is 5 out of 5 in the upper and lower extremities. Skin: No rashes, warm dry and intact. Neurologic: No obvious focal neurological deficits seen. Psychiatric: Alert and oriented x3 with a euthymic affect. Results & Data Results & Data ([facility]) Vital Signs (Past 12 Hours) Vital Signs Temp Pulse Pulse Resp BP BP Pulse Ox 10/29/20 14:16 85 27 H 139/84 97 10/29/20 14:00 82 30 H 142/89 H 98 10/29/20 13:23 97.8 F 76 25 H 137/80 98 10/29/20 13:15 97.8 F 79 23 137/80 96 10/29/20 11:40 66 31 H 123/77 95 10/29/20 11:35 62 11 L 125/73 94 10/29/20 11:30 65 20 115/80 95 10/29/20 11:25 67 11 L 111/68 95 10/29/20 11:21 68 12 110/74 96 10/29/20 11:03 98.6 F 66 20 144/104 H 96 Vital signs, labs and imaging personally reviewed. Coding Level of Care Code 54898 Inpt Consult Level 4 Diagnoses ACS (acute coronary syndrome) I24.9 DARA on CPAP G47.33; Z99.89 ST elevation (STEMI) myocardial infarction involving left anterior descending coronary artery I21.02
[2020-10-29 16:28] LABS: Appearance Urine Clear (Clear); Bacteria Urine Automated Negative (Negative); Bilirubin Urine Negative (Negative); Blood Urine Negative (Negative); Color Urine Yellow; Glucose Urine UA Negative (Negative); Ketones Urine Negative (Negative); Leukocyte Esterase Urine Negative (Negative); Nitrite Urine Negative (Negative); Protein Urine 1+ (Negative); RBC Urine Automated 0-4 /hpf (0-4); Specific Gravity Urine 1.044 (1.000-1.030); Urobilinogen Urine Negative (Negative); pH Urine 5.5 (4.5-7.5)
[2020-10-29] MEDS: METOPROLOL TARTRATE 25 MG TAB PO SCH (20:42)
[2020-10-30 05:12] LABS: Hematocrit (blood only) 43.6 % (42-52); Mean Corpuscular Hemoglobin 32.2 pg (25-34); Mean Corpuscular Hgb Conc 34.4 g/dL (32-36); Mean Corpuscular Volume 93.6 fL (80-100); Mean Platelet Volume 9.6 fL (7.4-10.4); Platelet Count 218 K/uL (130-400); RDW Coefficient of Variation 12.2 % (11.5-14.5); RDW Standard Deviation 41.3 fL (36.4-46.3); Red Blood Count 4.66 M/uL (4.7-6.1); White Blood Count 12.66 K/uL (4.8-10.8)
[2020-10-30 05:32] LABS: BUN Creatinine Ratio 14.5 (10-20); Calcium 8.2 mg/dl (8.5-10.1); Creatinine Clr Calc Pharmacy 132.7 ml/min; Est GFR (Non-African American) 94.9 ml/min; Magnesium 2.1 mg/dl (1.8-2.4); Potassium 4.2 mmol/L (3.5-5.1)
[2020-10-30 05:35] LABS: Phosphorus 3.3 mg/dl (2.5-4.9)
[2020-10-30 07:46] LABS: Estimated Average Glucose 111 mg/dl; Hemoglobin A1C 5.5 % (4.5-5.6)
[2020-10-30] MEDS ORDERED: TICAGRELOR 90 MG TAB PO SCH (08:00)
[2020-10-30] MEDS: ASPIRIN 81 MG ECTAB PO SCH (08:05)
[2020-10-30] MEDS: METOPROLOL TARTRATE 25 MG TAB PO SCH ×2 (08:06→20:34)
[2020-10-30] MEDS: ATORVASTATIN 40 MG TAB PO SCH (08:06)
[2020-10-30] MEDS: lisinopril 5 MG TAB PO SCH (08:06)
--- NOTE | 2020-10-30 08:17 | Electrocardiogram Report ---
Test Reason : Blood Pressure : / mmHG Vent. Rate : 061 BPM Atrial Rate : 061 BPM P-R Int : 126 ms QRS Dur : 100 ms QT Int : 394 ms P-R-T Axes : 048 016 018 degrees QTc Int : 396 ms Normal sinus rhythm Acute Anterior infarct Nondiagnostic inferior Q waves Abnormal ECG No previous ECGs available Confirmed by Luke Cifuentes ([id number]) on 10/30/2020 8:17:09 AM Referred By: REFERRED SELF Confirmed By:Luke Cifuentes
--- NOTE | 2020-10-30 08:49 | Electrocardiogram Report ---
Test Reason : Blood Pressure : / mmHG Vent. Rate : 072 BPM Atrial Rate : 072 BPM P-R Int : 156 ms QRS Dur : 104 ms QT Int : 388 ms P-R-T Axes : 056 007 007 degrees QTc Int : 424 ms Normal sinus rhythm Possible Inferior infarct (cited on or before 29-OCT-2020) Evolving Anterior infarct (cited on or before 29-OCT-2020) Abnormal ECG When compared with ECG of 29-OCT-2020 11:03, No significant change was found Confirmed by Luke Cifuentes ([id number]) on 10/30/2020 8:49:23 AM Referred By: REFERRED SELF Confirmed By:Luke Cifuentes
--- NOTE | 2020-10-30 09:42 | Critical Care Progress Note ---
Date of Service October 30, 2020 Assessment & Plan (1) ST elevation (STEMI) myocardial infarction involving left anterior desc ending coronary artery: Plan: 40-year-old male with a history of obesity and hypertension who is in the ICU now status post PCI x2 to the mid LAD. ST elevation DE -Plan second stage later today -Continue current therapies (2) ACS (acute coronary syndrome): (3) DARA on CPAP: Admission and Anticipated Discharge Date Admission Date: October 29, 2020 Subjective No overnight events Physical Exam Physical Exam: General: Alert. nontoxic. Skin: Warm, dry, Head: Atraumatic Ears, nose, mouth and throat: airway patent Cardiovascular: Normal peripheral perfusion Respiratory: no respiratory distress Gastrointestinal: Non distended Musculoskeletal: No deformity Results & Data Results & Data ([facility]) Vital Signs (Past 12 Hours) Vital Signs Temp Pulse Resp BP Pulse Ox 10/30/20 06:00 80 19 124/81 95 10/30/20 05:00 77 21 126/80 95 10/30/20 04:00 36.8 C 73 18 126/80 96 10/30/20 03:00 72 18 125/83 96 10/30/20 02:00 71 17 128/82 96 10/30/20 01:00 72 19 124/79 96 10/30/20 00:00 36.8 C 72 19 129/78 96 10/29/20 23:00 71 21 126/83 95 10/29/20 22:00 74 23 133/76 95 Laboratory Results 10/30/20 10/30/20 10/30/20 Range/Units 04:51 04:51 04:51 WBC 12.66 H (4.8-10.8) K/uL RBC 4.66 L (4.7-6.1) M/uL Hgb 15.0 (14.0-18.0) g/dL POC Hgb (14.0-18.0) g/dl Hct 43.6 (42-52) % POC Hct (42-52) % MCV 93.6 (80-100) fL MCH 32.2 (25-34) pg MCHC 34.4 (32-36) g/dL RDW Std Deviation 41.3 (36.4-46.3) fL RDW Coeff of Lianet 12.2 (11.5-14.5) % Plt Count 218 (130-400) K/uL MPV 9.6 (7.4-10.4) fL Immature Gran % (Auto) % Neut % (Auto) % Lymph % (Auto) % [place] % (Auto) % Eos % (Auto) % Baso % (Auto) % Neut # (Auto) (1.4-6.5) K/uL Lymph # (Auto) (1.2-3.4) K/uL [place] # (Auto) (0.11-0.59) K/uL Eos # (Auto) (0-0.5) K/uL Baso # (Auto) (0-0.2) K/uL Immature Gran # (Auto) (0.00-0.02) K/uL PT (9.0-12.0) Seconds INR (0.9-1.1) APTT (21.0-31.0) Seconds PTT Ratio Activ Coag Time Kaolin (94-140) SECONDS POC Sodium (135-144) mmol/L Sodium 139 (136-145) mmol/L POC Potassium (3.3-5.0) mmol/L Potassium 4.2 (3.5-5.1) mmol/L POC Chloride (101-112) mmol/L Chloride 108 H (98-107) mmol/L Carbon Dioxide 27 (21-32) mmol/L POC Total CO2 (24-31) mmol/L Anion Gap 4.0 (3-11) POC Anion Gap (16-25) mmol/L POC BUN (7-18) mg/dl BUN 14 (7-18) mg/dl Creatinine 0.99 (0.6-1.4) mg/dl POC Creatinine (0.6-1.3) mg/dl Est Cr Clr Drug Dosing 132.7 ml/min Est GFR ( Amer) 110.0 ml/min Est GFR (Non-Af Amer) 94.9 ml/min BUN/Creatinine Ratio 14.5 (10-20) Glucose 109 H (70-99) mg/dl POC Glucose (70-99) mg/dl POC Glucose (other) (70-99) mg/dl Estimat Average Glucose 111 mg/dl Hemoglobin A1c 5.5 (4.5-5.6) % Calcium 8.2 L (8.5-10.1) mg/dl POC Ioniz Calcium Juan Jose (1.12-1.32) mmol/l Phosphorus 3.3 (2.5-4.9) mg/dl Magnesium 2.1 (1.8-2.4) mg/dl Total Bilirubin (0.2-1) mg/dl AST (15-37) U/L ALT (12-78) U/L Alkaline Phosphatase (45-117) U/L Total Creatine Kinase (39-308) U/L CK-MB (CK-2) (0.5-3.6) ng/ml CK/CKMB % Calc (0-3.0) Troponin I (0-0.045) ng/ml Total Protein (6.4-8.2) gm/dl Albumin (3.4-5.0) gm/dl Globulin (2.5-4.0) gm/dl Albumin/Globulin Ratio (0.9-2) Triglycerides 354 H (0-150) mg/dl Cholesterol 205 H (0-200) mg/dl LDL Cholesterol, Calc 102 mg/dl VLDL Cholesterol, Calc 71 mg/dl HDL Cholesterol 32 mg/dl Cholesterol/HDL Ratio 6 Lipase (73-393) U/L TSH (0.300-4.500) uIu/ml Urine Color Urine Appearance (Clear) Urine pH (4.5-7.5) Ur Specific [place] (1.000-1.030) Urine Protein (Negative) Urine Glucose (UA) (Negative) Urine Ketones (Negative) Urine Blood (Negative) Urine Nitrite (Negative) Urine Bilirubin (Negative) Urine Urobilinogen (Negative) Ur Leukocyte Esterase (Negative) Urine WBC (Auto) (0-5) /hpf Urine RBC (Auto) (0-4) /hpf U Hyaline Cast (Auto) (0-5) /lpf U Epithel Cells (Auto) (0-5) /lpf Urine Bacteria (Auto) (Negative) Nasal Screen MRSA (PCR) (Negative) COVID-19 Eval Order SARS-CoV-2, RNA, NAAT (NEGATIVE) 10/29/20 10/29/20 10/29/20 Range/Units Unknown 23:21 18:20 WBC (4.8-10.8) K/uL RBC (4.7-6.1) M/uL Hgb (14.0-18.0) g/dL POC Hgb (14.0-18.0) g/dl Hct (42-52) % POC Hct (42-52) % MCV (80-100) fL MCH (25-34) pg MCHC (32-36) g/dL RDW Std Deviation (36.4-46.3) fL RDW Coeff of Lianet (11.5-14.5) % Plt Count (130-400) K/uL MPV (7.4-10.4) fL Immature Gran % (Auto) % Neut % (Auto) % Lymph % (Auto) % [place] % (Auto) % Eos % (Auto) % Baso % (Auto) % Neut # (Auto) (1.4-6.5) K/uL Lymph # (Auto) (1.2-3.4) K/uL [place] # (Auto) (0.11-0.59) K/uL Eos # (Auto) (0-0.5) K/uL Baso # (Auto) (0-0.2) K/uL Immature Gran # (Auto) (0.00-0.02) K/uL PT (9.0-12.0) Seconds INR (0.9-1.1) APTT (21.0-31.0) Seconds PTT Ratio Activ Coag Time Kaolin (94-140) SECONDS POC Sodium (135-144) mmol/L Sodium (136-145) mmol/L POC Potassium (3.3-5.0) mmol/L Potassium (3.5-5.1) mmol/L POC Chloride (101-112) mmol/L Chloride (98-107) mmol/L Carbon Dioxide (21-32) mmol/L POC Total CO2 (24-31) mmol/L Anion Gap (3-11) POC Anion Gap (16-25) mmol/L POC BUN (7-18) mg/dl BUN (7-18) mg/dl Creatinine (0.6-1.4) mg/dl POC Creatinine (0.6-1.3) mg/dl Est Cr Clr Drug Dosing ml/min Est GFR ( Amer) ml/min Est GFR (Non-Af Amer) ml/min BUN/Creatinine Ratio (10-20) Glucose (70-99) mg/dl POC Glucose 140 H (70-99) mg/dl POC Glucose (other) (70-99) mg/dl Estimat Average Glucose mg/dl Hemoglobin A1c (4.5-5.6) % Calcium (8.5-10.1) mg/dl POC Ioniz Calcium [place] (1.12-1.32) mmol/l Phosphorus (2.5-4.9) mg/dl Magnesium (1.8-2.4) mg/dl Total Bilirubin (0.2-1) mg/dl AST (15-37) U/L ALT (12-78) U/L Alkaline Phosphatase (45-117) U/L Total Creatine Kinase (39-308) U/L CK-MB (CK-2) (0.5-3.6) ng/ml CK/CKMB % Calc (0-3.0) Troponin I 36.100 H* (0-0.045) ng/ml Total Protein (6.4-8.2) gm/dl Albumin (3.4-5.0) gm/dl Globulin (2.5-4.0) gm/dl Albumin/Globulin Ratio (0.9-2) Triglycerides (0-150) mg/dl Cholesterol (0-200) mg/dl LDL Cholesterol, Calc mg/dl VLDL Cholesterol, Calc mg/dl HDL Cholesterol mg/dl Cholesterol/HDL Ratio Lipase (73-393) U/L TSH (0.300-4.500) uIu/ml Urine Color Urine Appearance (Clear) Urine pH (4.5-7.5) Ur Specific [place] (1.000-1.030) Urine Protein (Negative) Urine Glucose (UA) (Negative) Urine Ketones (Negative) Urine Blood (Negative) Urine Nitrite (Negative) Urine Bilirubin (Negative) Urine Urobilinogen (Negative) Ur Leukocyte Esterase (Negative) Urine WBC (Auto) (0-5) /hpf Urine RBC (Auto) (0-4) /hpf U Hyaline Cast (Auto) (0-5) /lpf U Epithel Cells (Auto) (0-5) /lpf Urine Bacteria (Auto) (Negative) Nasal Screen MRSA (PCR) Negative (Negative) COVID-19 Eval Order SARS-CoV-2, RNA, NAAT (NEGATIVE) 10/29/20 10/29/20 10/29/20 Range/Units 16:45 15:30 12:36 WBC (4.8-10.8) K/uL RBC (4.7-6.1) M/uL Hgb (14.0-18.0) g/dL POC Hgb (14.0-18.0) g/dl Hct (42-52) % POC Hct (42-52) % MCV (80-100) fL MCH (25-34) pg MCHC (32-36) g/dL RDW Std Deviation (36.4-46.3) fL RDW Coeff of Lianet (11.5-14.5) % Plt Count (130-400) K/uL MPV (7.4-10.4) fL Immature Gran % (Auto) % Neut % (Auto) % Lymph % (Auto) % [place] % (Auto) % Eos % (Auto) % Baso % (Auto) % Neut # (Auto) (1.4-6.5) K/uL Lymph # (Auto) (1.2-3.4) K/uL [place] # (Auto) (0.11-0.59) K/uL Eos # (Auto) (0-0.5) K/uL Baso # (Auto) (0-0.2) K/uL Immature Gran # (Auto) (0.00-0.02) K/uL PT (9.0-12.0) Seconds INR (0.9-1.1) APTT (21.0-31.0) Seconds PTT Ratio Activ Coag Time Kaolin 235 H (94-140) SECONDS POC Sodium (135-144) mmol/L Sodium (136-145) mmol/L POC Potassium (3.3-5.0) mmol/L Potassium (3.5-5.1) mmol/L POC Chloride (101-112) mmol/L Chloride (98-107) mmol/L Carbon Dioxide (21-32) mmol/L POC Total CO2 (24-31) mmol/L Anion Gap (3-11) POC Anion Gap (16-25) mmol/L POC BUN (7-18) mg/dl BUN (7-18) mg/dl Creatinine (0.6-1.4) mg/dl POC Creatinine (0.6-1.3) mg/dl Est Cr Clr Drug Dosing ml/min Est GFR ( Amer) ml/min Est GFR (Non-Af Amer) ml/min BUN/Creatinine Ratio (10-20) Glucose (70-99) mg/dl POC Glucose (70-99) mg/dl POC Glucose (other) (70-99) mg/dl Estimat Average Glucose mg/dl Hemoglobin A1c (4.5-5.6) % Calcium (8.5-10.1) mg/dl POC Ioniz Calcium [place] Jose (1.12-1.32) mmol/l Phosphorus (2.5-4.9) mg/dl Magnesium (1.8-2.4) mg/dl Total Bilirubin (0.2-1) mg/dl AST (15-37) U/L ALT (12-78) U/L Alkaline Phosphatase (45-117) U/L Total Creatine Kinase (39-308) U/L CK-MB (CK-2) (0.5-3.6) ng/ml CK/CKMB % Calc (0-3.0) Troponin I 9.300 H* (0-0.045) ng/ml Total Protein (6.4-8.2) gm/dl Albumin (3.4-5.0) gm/dl Globulin (2.5-4.0) gm/dl Albumin/Globulin Ratio (0.9-2) Triglycerides (0-150) mg/dl Cholesterol (0-200) mg/dl LDL Cholesterol, Calc mg/dl VLDL Cholesterol, Calc mg/dl HDL Cholesterol mg/dl Cholesterol/HDL Ratio Lipase (73-393) U/L TSH (0.300-4.500) uIu/ml Urine Color Yellow Urine Appearance Clear (Clear) Urine pH 5.5 (4.5-7.5) Ur Specific [place] 1.044 H (1.000-1.030) Urine Protein 1+ H (Negative) Urine Glucose (UA) Negative (Negative) Urine Ketones Negative (Negative) Urine Blood Negative (Negative) Urine Nitrite Negative (Negative) Urine Bilirubin Negative (Negative) Urine Urobilinogen Negative (Negative) Ur Leukocyte Esterase Negative (Negative) Urine WBC (Auto) 1-5 (0-5) /hpf Urine RBC (Auto) 0-4 (0-4) /hpf U Hyaline Cast (Auto) 1-5 (0-5) /lpf U Epithel Cells (Auto) 5-10 H (0-5) /lpf Urine Bacteria (Auto) Negative (Negative) Nasal Screen MRSA (PCR) (Negative) COVID-19 Eval Order SARS-CoV-2, RNA, NAAT (NEGATIVE) 10/29/20 10/29/20 10/29/20 Range/Units 12:12 11:14 11:05 WBC (4.8-10.8) K/uL RBC (4.7-6.1) M/uL Hgb (14.0-18.0) g/dL POC Hgb 16.3 (14.0-18.0) g/dl Hct (42-52) % POC Hct 48 (42-52) % MCV (80-100) fL MCH (25-34) pg MCHC (32-36) g/dL RDW Std Deviation (36.4-46.3) fL RDW Coeff of Lianet (11.5-14.5) % Plt Count (130-400) K/uL MPV (7.4-10.4) fL Immature Gran % (Auto) % Neut % (Auto) % Lymph % (Auto) % [place] % (Auto) % Eos % (Auto) % Baso % (Auto) % Neut # (Auto) (1.4-6.5) K/uL Lymph # (Auto) (1.2-3.4) K/uL [place] # (Auto) (0.11-0.59) K/uL Eos # (Auto) (0-0.5) K/uL Baso # (Auto) (0-0.2) K/uL Immature Gran # (Auto) (0.00-0.02) K/uL PT (9.0-12.0) Seconds INR (0.9-1.1) APTT (21.0-31.0) Seconds PTT Ratio Activ Coag Time Kaolin 202 H (94-140) SECONDS POC Sodium 144 (135-144) mmol/L Sodium (136-145) mmol/L POC Potassium 4.3 (3.3-5.0) mmol/L Potassium (3.5-5.1) mmol/L POC Chloride 104 (101-112) mmol/L Chloride (98-107) mmol/L Carbon Dioxide (21-32) mmol/L POC Total CO2 25 (24-31) mmol/L Anion Gap (3-11) POC Anion Gap 20.0 (16-25) mmol/L POC BUN 17 (7-18) mg/dl BUN (7-18) mg/dl Creatinine (0.6-1.4) mg/dl POC Creatinine 1.1 (0.6-1.3) mg/dl Est Cr Clr Drug Dosing ml/min Est GFR ( Amer) ml/min Est GFR (Non-Af Amer) ml/min BUN/Creatinine Ratio (10-20) Glucose (70-99) mg/dl POC Glucose (70-99) mg/dl POC Glucose (other) 126 H (70-99) mg/dl Estimat Average Glucose mg/dl Hemoglobin A1c (4.5-5.6) % Calcium (8.5-10.1) mg/dl POC Ioniz Calcium [place] 1.07 L (1.12-1.32) mmol/l Phosphorus (2.5-4.9) mg/dl Magnesium (1.8-2.4) mg/dl Total Bilirubin (0.2-1) mg/dl AST (15-37) U/L ALT (12-78) U/L Alkaline Phosphatase (45-117) U/L Total Creatine Kinase (39-308) U/L CK-MB (CK-2) (0.5-3.6) ng/ml CK/CKMB % Calc (0-3.0) Troponin I (0-0.045) ng/ml Total Protein (6.4-8.2) gm/dl Albumin (3.4-5.0) gm/dl Globulin (2.5-4.0) gm/dl Albumin/Globulin Ratio (0.9-2) Triglycerides (0-150) mg/dl Cholesterol (0-200) mg/dl LDL Cholesterol, Calc mg/dl VLDL Cholesterol, Calc mg/dl HDL Cholesterol mg/dl Cholesterol/HDL Ratio Lipase (73-393) U/L TSH (0.300-4.500) uIu/ml Urine Color Urine Appearance (Clear) Urine pH (4.5-7.5) Ur Specific [place] (1.000-1.030) Urine Protein (Negative) Urine Glucose (UA) (Negative) Urine Ketones (Negative) Urine Blood (Negative) Urine Nitrite (Negative) Urine Bilirubin (Negative) Urine Urobilinogen (Negative) Ur Leukocyte Esterase (Negative) Urine WBC (Auto) (0-5) /hpf Urine RBC (Auto) (0-4) /hpf U Hyaline Cast (Auto) (0-5) /lpf U Epithel Cells (Auto) (0-5) /lpf Urine Bacteria (Auto) (Negative) Nasal Screen MRSA (PCR) (Negative) COVID-19 Eval Order SARS-CoV-2, RNA, NAAT NEGATIVE (NEGATIVE) 10/29/20 10/29/20 10/29/20 Range/Units 11:05 11:05 11:05 WBC (4.8-10.8) K/uL RBC (4.7-6.1) M/uL Hgb (14.0-18.0) g/dL POC Hgb (14.0-18.0) g/dl Hct (42-52) % POC Hct (42-52) % MCV (80-100) fL MCH (25-34) pg MCHC (32-36) g/dL RDW Std Deviation (36.4-46.3) fL RDW Coeff of Lianet (11.5-14.5) % Plt Count (130-400) K/uL MPV (7.4-10.4) fL Immature Gran % (Auto) % Neut % (Auto) % Lymph % (Auto) % [place] % (Auto) % Eos % (Auto) % Baso % (Auto) % Neut # (Auto) (1.4-6.5) K/uL Lymph # (Auto) (1.2-3.4) K/uL [place] # (Auto) (0.11-0.59) K/uL Eos # (Auto) (0-0.5) K/uL Baso # (Auto) (0-0.2) K/uL Immature Gran # (Auto) (0.00-0.02) K/uL PT 10.7 (9.0-12.0) Seconds INR 1.1 (0.9-1.1) APTT 22.3 (21.0-31.0) Seconds PTT Ratio 0.8 Activ Coag Time Kaolin (94-140) SECONDS POC Sodium (135-144) mmol/L Sodium 140 (136-145) mmol/L POC Potassium (3.3-5.0) mmol/L Potassium 4.2 (3.5-5.1) mmol/L POC Chloride (101-112) mmol/L Chloride 107 (98-107) mmol/L Carbon Dioxide 28 (21-32) mmol/L POC Total CO2 (24-31) mmol/L Anion Gap 5.0 (3-11) POC Anion Gap (16-25) mmol/L POC BUN (7-18) mg/dl BUN 17 (7-18) mg/dl Creatinine 1.07 (0.6-1.4) mg/dl POC Creatinine (0.6-1.3) mg/dl Est Cr Clr Drug Dosing 123.5 ml/min Est GFR ( Amer) 100.1 ml/min Est GFR (Non-Af Amer) 86.4 ml/min BUN/Creatinine Ratio 15.5 (10-20) Glucose 125 H (70-99) mg/dl POC Glucose (70-99) mg/dl POC Glucose (other) (70-99) mg/dl Estimat Average Glucose mg/dl Hemoglobin A1c (4.5-5.6) % Calcium 9.1 (8.5-10.1) mg/dl POC Ioniz Calcium [place] (1.12-1.32) mmol/l Phosphorus (2.5-4.9) mg/dl Magnesium 2.2 (1.8-2.4) mg/dl Total Bilirubin 0.8 (0.2-1) mg/dl AST 17 (15-37) U/L ALT 40 (12-78) U/L Alkaline Phosphatase 75 (45-117) U/L Total Creatine Kinase 176 (39-308) U/L CK-MB (CK-2) 4.0 H (0.5-3.6) ng/ml CK/CKMB % Calc 2.3 (0-3.0) Troponin I 0.261 H* (0-0.045) ng/ml Total Protein 8.0 (6.4-8.2) gm/dl Albumin 4.2 (3.4-5.0) gm/dl Globulin 3.8 (2.5-4.0) gm/dl Albumin/Globulin Ratio 1.1 (0.9-2) Triglycerides (0-150) mg/dl Cholesterol (0-200) mg/dl LDL Cholesterol, Calc mg/dl VLDL Cholesterol, Calc mg/dl HDL Cholesterol mg/dl Cholesterol/HDL Ratio Lipase 78 (73-393) U/L TSH 1.200 (0.300-4.500) uIu/ml Urine Color Urine Appearance (Clear) Urine pH (4.5-7.5) Ur Specific [place] (1.000-1.030) Urine Protein (Negative) Urine Glucose (UA) (Negative) Urine Ketones (Negative) Urine Blood (Negative) Urine Nitrite (Negative) Urine Bilirubin (Negative) Urine Urobilinogen (Negative) Ur Leukocyte Esterase (Negative) Urine WBC (Auto) (0-5) /hpf Urine RBC (Auto) (0-4) /hpf U Hyaline Cast (Auto) (0-5) /lpf U Epithel Cells (Auto) (0-5) /lpf Urine Bacteria (Auto) (Negative) Nasal Screen MRSA (PCR) (Negative) COVID-19 Eval Order Covid[address] [facility] [facility] SARS-CoV-2, RNA, NAAT (NEGATIVE) 10/29/20 Range/Units 11:05 WBC 7.96 (4.8-10.8) K/uL RBC 5.13 (4.7-6.1) M/uL Hgb 16.5 (14.0-18.0) g/dL POC Hgb (14.0-18.0) g/dl Hct 47.0 (42-52) % POC Hct (42-52) % MCV 91.6 (80-100) fL MCH 32.2 (25-34) pg MCHC 35.1 (32-36) g/dL RDW Std Deviation 40.1 (36.4-46.3) fL RDW Coeff of Lianet 11.9 (11.5-14.5) % Plt Count 261 (130-400) K/uL MPV 9.7 (7.4-10.4) fL Immature Gran % (Auto) 0.3 % Neut % (Auto) 59.6 % Lymph % (Auto) 32.3 % [place] % (Auto) 6.0 % Eos % (Auto) 1.5 % Baso % (Auto) 0.3 % Neut # (Auto) 4.75 (1.4-6.5) K/uL Lymph # (Auto) 2.57 (1.2-3.4) K/uL [place] # (Auto) 0.48 (0.11-0.59) K/uL Eos # (Auto) 0.12 (0-0.5) K/uL Baso # (Auto) 0.02 (0-0.2) K/uL Immature Gran # (Auto) 0.02 (0.00-0.02) K/uL PT (9.0-12.0) Seconds INR (0.9-1.1) APTT (21.0-31.0) Seconds PTT Ratio Activ Coag Time Kaolin (94-140) SECONDS POC Sodium (135-144) mmol/L Sodium (136-145) mmol/L POC Potassium (3.3-5.0) mmol/L Potassium (3.5-5.1) mmol/L POC Chloride (101-112) mmol/L Chloride (98-107) mmol/L Carbon Dioxide (21-32) mmol/L POC Total CO2 (24-31) mmol/L Anion Gap (3-11) POC Anion Gap (16-25) mmol/L POC BUN (7-18) mg/dl BUN (7-18) mg/dl Creatinine (0.6-1.4) mg/dl POC Creatinine (0.6-1.3) mg/dl Est Cr Clr Drug Dosing ml/min Est GFR ( Amer) ml/min Est GFR (Non-Af Amer) ml/min BUN/Creatinine Ratio (10-20) Glucose (70-99) mg/dl POC Glucose (70-99) mg/dl POC Glucose (other) (70-99) mg/dl Estimat Average Glucose mg/dl Hemoglobin A1c (4.5-5.6) % Calcium (8.5-10.1) mg/dl POC Ioniz Calcium [place] (1.12-1.32) mmol/l Phosphorus (2.5-4.9) mg/dl Magnesium (1.8-2.4) mg/dl Total Bilirubin (0.2-1) mg/dl AST (15-37) U/L ALT (12-78) U/L Alkaline Phosphatase (45-117) U/L Total Creatine Kinase (39-308) U/L CK-MB (CK-2) (0.5-3.6) ng/ml CK/CKMB % Calc (0-3.0) Troponin I (0-0.045) ng/ml Total Protein (6.4-8.2) gm/dl Albumin (3.4-5.0) gm/dl Globulin (2.5-4.0) gm/dl Albumin/Globulin Ratio (0.9-2) Triglycerides (0-150) mg/dl Cholesterol (0-200) mg/dl LDL Cholesterol, Calc mg/dl VLDL Cholesterol, Calc mg/dl HDL Cholesterol mg/dl Cholesterol/HDL Ratio Lipase (73-393) U/L TSH (0.300-4.500) uIu/ml Urine Color Urine Appearance (Clear) Urine pH (4.5-7.5) Ur Specific [place] (1.000-1.030) Urine Protein (Negative) Urine Glucose (UA) (Negative) Urine Ketones (Negative) Urine Blood (Negative) Urine Nitrite (Negative) Urine Bilirubin (Negative) Urine Urobilinogen (Negative) Ur Leukocyte Esterase (Negative) Urine WBC (Auto) (0-5) /hpf Urine RBC (Auto) (0-4) /hpf U Hyaline Cast (Auto) (0-5) /lpf U Epithel Cells (Auto) (0-5) /lpf Urine Bacteria (Auto) (Negative) Nasal Screen MRSA (PCR) (Negative) COVID-19 Eval Order SARS-CoV-2, RNA, NAAT (NEGATIVE) Coding Level of Care Code 08232 Subseq Hosp Care Lvl [address] elevation (STEMI) myocardial infarction involving left anterior descending coronary artery I21.02 ACS (acute coronary syndrome) I24.9 DARA on CPAP G47.33; Z99.89
--- NOTE | 2020-10-30 10:24 | Electrocardiogram Report ---
Test Reason : Blood Pressure : / mmHG Vent. Rate : 084 BPM Atrial Rate : 084 BPM P-R Int : 156 ms QRS Dur : 096 ms QT Int : 358 ms P-R-T Axes : 041 016 012 degrees QTc Int : 423 ms Poor data quality, interpretation may be adversely affected Normal sinus rhythm Recent Anterior infarct (cited on or before 29-OCT-2020) Possible Old Inferior infarct Abnormal ECG When compared with ECG of 29-OCT-2020 14:25, No significant change Confirmed by Luke Cifuentes ([id number]) on 10/30/2020 10:23:45 AM Referred By: REFERRED SELF Confirmed By:Luke Cifuentes
--- NOTE | 2020-10-30 11:27 | Cardiology Progress Note ---
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 Preserved LV function 3. Dyslipidemia 4. Family history of premature CAD Patient doing well today post anterior STEMI treated with PCI of LAD yesterday. No recurrent angina. On exam appears well perfused without signs of heart failure. Renal function, electrolytes stable. Telemetry unremarkable. Plan for staged PCI of right posterior AV branch today with Dr. Gonzalez. --Will need followup at our office 1-2 weeks after discharge --Continue DAPT for minimum one year --Continue metoprolol, lisinopril --High intensity statin --Consult cardiac rehab Admission and Anticipated Discharge Date Admission Date: October 29, 2020 Supervising Physician Co-Signing Physician Notes Agree with assessment and plan as outlined above. RUE access site hematoma. Neurovascularly intact distally. Underwent angioplasty of small R-PAV without complication. Mid RCA non-obstructive by FFR. LVEDP low. Continue DAPT with ASA/Ticagrelor. Will increase metoprolol to 25 mg BID. Likely home tomorrow. Subjective Pt feeling well, no acute complaints today. No further episodes of chest/arm pain. No dyspnea, orthopnea or PND. No palpitations. Slight discomfort of right forearm hematoma. Tele reviewed-- no arrhythmias Echo with LAD distribution WMA, preserved LV systolic function. Physical Exam Physical Exam: General: No acute distress, comfortable. HEENT: Head is normal. PERRLA. EOMI. Sclerae anicteric. Mask on Neck: Normal carotid upstrokes, no bruits. No appreciable JVD. Lungs: Clear to auscultation bilaterally without rales, rhonchi or wheezes. Cardiac: Regular rate and rhythm. S1-S2 normal. No appreciable murmur, gallop or rub. Abdomen: Soft and nontender. Bowel sounds normal. No mass or organomegaly. No abdominal bruit. Extremities/vascular: -- Well perfused. No peripheral edema. --Radial, DP and PT pulses 2+ bilaterally --Right forearm hematoma, ecchymosis. Neurovascularly intact Neurologic: Nonfocal Psychiatric: Affect appropriate. Alert and oriented. Results & Data ([facility]) Vital Signs (Past 12 Hours) Vital Signs Temp Pulse Resp BP Pulse Ox 10/30/20 10:00 80 17 142/78 H 97 10/30/20 09:00 76 22 128/76 96 10/30/20 08:00 36.8 C 80 19 135/74 95 10/30/20 07:00 84 24 129/79 95 10/30/20 06:00 80 19 124/81 95 10/30/20 05:00 77 21 126/80 95 10/30/20 04:00 36.8 C 73 18 126/80 96 10/30/20 03:00 72 18 125/83 96 10/30/20 02:00 71 17 128/82 96 10/30/20 01:00 72 19 124/79 96 10/30/20 00:00 36.8 C 72 19 129/78 96 Laboratory Results Laboratory Results - last 24 hr 10/29/20 10/29/20 10/29/20 11:05 11:05 11:05 WBC 7.96 RBC 5.13 Hgb 16.5 POC Hgb Hct 47.0 POC Hct MCV 91.6 MCH 32.2 MCHC 35.1 RDW Std Deviation 40.1 RDW Coeff of Lianet 11.9 Plt Count 261 MPV 9.7 Immature Gran % (Auto) 0.3 Neut % (Auto) 59.6 Lymph % (Auto) 32.3 Routt % (Auto) 6.0 Eos % (Auto) 1.5 Baso % (Auto) 0.3 Neut # (Auto) 4.75 Lymph # (Auto) 2.57 Routt # (Auto) 0.48 Eos # (Auto) 0.12 Baso # (Auto) 0.02 Immature Gran # (Auto) 0.02 PT 10.7 INR 1.1 APTT 22.3 PTT Ratio 0.8 Activ Coag Time Kaolin POC Sodium Sodium 140 POC Potassium Potassium 4.2 POC Chloride Chloride 107 Carbon Dioxide 28 POC Total CO2 Anion Gap 5.0 POC Anion Gap POC BUN BUN 17 Creatinine 1.07 POC Creatinine Est Cr Clr Drug Dosing 123.5 Est GFR ( Amer) 100.1 Est GFR (Non-Af Amer) 86.4 BUN/Creatinine Ratio 15.5 Glucose 125 H POC Glucose POC Glucose (other) Estimat Average Glucose Hemoglobin A1c Calcium 9.1 POC Ioniz Calcium Juan Jose Phosphorus Magnesium 2.2 Total Bilirubin 0.8 AST 17 ALT 40 Alkaline Phosphatase 75 Total Creatine Kinase 176 CK-MB (CK-2) 4.0 H CK/CKMB % Calc 2.3 Troponin I 0.261 H* Total Protein 8.0 Albumin 4.2 Globulin 3.8 Albumin/Globulin Ratio 1.1 Triglycerides Cholesterol LDL Cholesterol, Calc VLDL Cholesterol, Calc HDL Cholesterol Cholesterol/HDL Ratio Lipase 78 TSH 1.200 Urine Color Urine Appearance Urine pH Ur Specific [place] Urine Protein Urine Glucose (UA) Urine Ketones Urine Blood Urine Nitrite Urine Bilirubin Urine Urobilinogen Ur Leukocyte Esterase Urine WBC (Auto) Urine RBC (Auto) U Hyaline Cast (Auto) U Epithel Cells (Auto) Urine Bacteria (Auto) Nasal Screen MRSA (PCR) COVID-19 Eval Order SARS-CoV-2, RNA, NAAT 10/29/20 10/29/20 10/29/20 11:05 11:05 11:14 WBC RBC Hgb POC Hgb 16.3 Hct POC Hct 48 MCV MCH MCHC RDW Std Deviation RDW Coeff of Lianet Plt Count MPV Immature Gran % (Auto) Neut % (Auto) Lymph % (Auto) Routt % (Auto) Eos % (Auto) Baso % (Auto) Neut # (Auto) Lymph # (Auto) Routt # (Auto) Eos # (Auto) Baso # (Auto) Immature Gran # (Auto) PT INR APTT PTT Ratio Activ Coag Time Kaolin POC Sodium 144 Sodium POC Potassium 4.3 Potassium POC Chloride 104 Chloride Carbon Dioxide POC Total CO2 25 Anion Gap POC Anion Gap 20.0 POC BUN 17 BUN Creatinine POC Creatinine 1.1 Est Cr Clr Drug Dosing Est GFR ( Amer) Est GFR (Non-Af Amer) BUN/Creatinine Ratio Glucose POC Glucose POC Glucose (other) 126 H Estimat Average Glucose Hemoglobin A1c Calcium POC Ioniz Calcium Juan Jose 1.07 L Phosphorus Magnesium Total Bilirubin AST ALT Alkaline Phosphatase Total Creatine Kinase CK-MB (CK-2) CK/CKMB % Calc Troponin I Total Protein Albumin Globulin Albumin/Globulin Ratio Triglycerides Cholesterol LDL Cholesterol, Calc VLDL Cholesterol, Calc HDL Cholesterol Cholesterol/HDL Ratio Lipase TSH Urine Color Urine Appearance Urine pH Ur Specific [place] Urine Protein Urine Glucose (UA) Urine Ketones Urine Blood Urine Nitrite Urine Bilirubin Urine Urobilinogen Ur Leukocyte Esterase Urine WBC (Auto) Urine RBC (Auto) U Hyaline Cast (Auto) U Epithel Cells (Auto) Urine Bacteria (Auto) Nasal Screen MRSA (PCR) COVID-19 Eval [facility] [place] SARS-CoV-2, RNA, NAAT NEGATIVE 10/29/20 10/29/20 10/29/20 12:12 12:36 15:30 WBC RBC Hgb POC Hgb Hct POC Hct MCV MCH MCHC RDW Std Deviation RDW Coeff of Lianet Plt Count MPV Immature Gran % (Auto) Neut % (Auto) Lymph % (Auto) Routt % (Auto) Eos % (Auto) Baso % (Auto) Neut # (Auto) Lymph # (Auto) Routt # (Auto) Eos # (Auto) Baso # (Auto) Immature Gran # (Auto) PT INR APTT PTT Ratio Activ Coag Time Kaolin 202 H 235 H POC Sodium Sodium POC Potassium Potassium POC Chloride Chloride Carbon Dioxide POC Total CO2 Anion Gap POC Anion Gap POC BUN BUN Creatinine POC Creatinine Est Cr Clr Drug Dosing Est GFR ( Amer) Est GFR (Non-Af Amer) BUN/Creatinine Ratio Glucose POC Glucose POC Glucose (other) Estimat Average Glucose Hemoglobin A1c Calcium POC Ioniz Calcium Juan Jose Phosphorus Magnesium Total Bilirubin AST ALT Alkaline Phosphatase Total Creatine Kinase CK-MB (CK-2) CK/CKMB % Calc Troponin I Total Protein Albumin Globulin Albumin/Globulin Ratio Triglycerides Cholesterol LDL Cholesterol, Calc VLDL Cholesterol, Calc HDL Cholesterol Cholesterol/HDL Ratio Lipase TSH Urine Color Yellow Urine Appearance Clear Urine pH 5.5 Ur Specific [place] 1.044 H Urine Protein 1+ H Urine Glucose (UA) Negative Urine Ketones Negative Urine Blood Negative Urine Nitrite Negative Urine Bilirubin Negative Urine Urobilinogen Negative Ur Leukocyte Esterase Negative Urine WBC (Auto) 1-5 Urine RBC (Auto) 0-4 U Hyaline Cast (Auto) 1-5 U Epithel Cells (Auto) 5-10 H Urine Bacteria (Auto) Negative Nasal Screen MRSA (PCR) COVID-19 Eval Order SARS-CoV-2, RNA, NAAT 10/29/20 10/29/20 10/29/20 16:45 18:20 23:21 WBC RBC Hgb POC Hgb Hct POC Hct MCV MCH MCHC RDW Std Deviation RDW Coeff of Lianet Plt Count MPV Immature Gran % (Auto) Neut % (Auto) Lymph % (Auto) Routt % (Auto) Eos % (Auto) Baso % (Auto) Neut # (Auto) Lymph # (Auto) Routt # (Auto) Eos # (Auto) Baso # (Auto) Immature Gran # (Auto) PT INR APTT PTT Ratio Activ Coag Time Kaolin POC Sodium Sodium POC Potassium Potassium POC Chloride Chloride Carbon Dioxide POC Total CO2 Anion Gap POC Anion Gap POC BUN BUN Creatinine POC Creatinine Est Cr Clr Drug Dosing Est GFR ( Amer) Est GFR (Non-Af Amer) BUN/Creatinine Ratio Glucose POC Glucose 140 H POC Glucose (other) Estimat Average Glucose Hemoglobin A1c Calcium POC Ioniz Calcium Juan Jose Phosphorus Magnesium Total Bilirubin AST ALT Alkaline Phosphatase Total Creatine Kinase CK-MB (CK-2) CK/CKMB % Calc Troponin I 9.300 H* 36.100 H* Total Protein Albumin Globulin Albumin/Globulin Ratio Triglycerides Cholesterol LDL Cholesterol, Calc VLDL Cholesterol, Calc HDL Cholesterol Cholesterol/HDL Ratio Lipase TSH Urine Color Urine Appearance Urine pH Ur Specific [place] Urine Protein Urine Glucose (UA) Urine Ketones Urine Blood Urine Nitrite Urine Bilirubin Urine Urobilinogen Ur Leukocyte Esterase Urine WBC (Auto) Urine RBC (Auto) U Hyaline Cast (Auto) U Epithel Cells (Auto) Urine Bacteria (Auto) Nasal Screen MRSA (PCR) COVID-19 Eval Order SARS-CoV-2, RNA, NAAT 10/29/20 10/30/20 10/30/20 Unknown 04:51 04:51 WBC 12.66 H RBC 4.66 L Hgb 15.0 POC Hgb Hct 43.6 POC Hct MCV 93.6 MCH 32.2 MCHC 34.4 RDW Std Deviation 41.3 RDW Coeff of Lianet 12.2 Plt Count 218 MPV 9.6 Immature Gran % (Auto) Neut % (Auto) Lymph % (Auto) Routt % (Auto) Eos % (Auto) Baso % (Auto) Neut # (Auto) Lymph # (Auto) Routt # (Auto) Eos # (Auto) Baso # (Auto) Immature Gran # (Auto) PT INR APTT PTT Ratio Activ Coag Time Kaolin POC Sodium Sodium 139 POC Potassium Potassium 4.2 POC Chloride Chloride 108 H Carbon Dioxide 27 POC Total CO2 Anion Gap 4.0 POC Anion Gap POC BUN BUN 14 Creatinine 0.99 POC Creatinine Est Cr Clr Drug Dosing 132.7 Est GFR ( Amer) 110.0 Est GFR (Non-Af Amer) 94.9 BUN/Creatinine Ratio 14.5 Glucose 109 H POC Glucose POC Glucose (other) Estimat Average Glucose Hemoglobin A1c Calcium 8.2 L POC Ioniz Calcium Juan Jose Phosphorus 3.3 Magnesium 2.1 Total Bilirubin AST ALT Alkaline Phosphatase Total Creatine Kinase CK-MB (CK-2) CK/CKMB % Calc Troponin I Total Protein Albumin Globulin Albumin/Globulin Ratio Triglycerides 354 H Cholesterol 205 H LDL Cholesterol, Calc 102 VLDL Cholesterol, Calc 71 HDL Cholesterol 32 Cholesterol/HDL Ratio 6 Lipase TSH Urine Color Urine Appearance Urine pH Ur Specific [place] Urine Protein Urine Glucose (UA) Urine Ketones Urine Blood Urine Nitrite Urine Bilirubin Urine Urobilinogen Ur Leukocyte Esterase Urine WBC (Auto) Urine RBC (Auto) U Hyaline Cast (Auto) U Epithel Cells (Auto) Urine Bacteria (Auto) Nasal Screen MRSA (PCR) Negative COVID-19 Eval Order SARS-CoV-2, RNA, NAAT 10/30/20 04:51 WBC RBC Hgb POC Hgb Hct POC Hct MCV MCH MCHC RDW Std Deviation RDW Coeff of Lianet Plt Count MPV Immature Gran % (Auto) Neut % (Auto) Lymph % (Auto) [place]t % (Auto) Eos % (Auto) Baso % (Auto) Neut # (Auto) Lymph # (Auto) [place]t # (Auto) Eos # (Auto) Baso # (Auto) Immature Gran # (Auto) PT INR APTT PTT Ratio Activ Coag Time Kaolin POC Sodium Sodium POC Potassium Potassium POC Chloride Chloride Carbon Dioxide POC Total CO2 Anion Gap POC Anion Gap POC BUN BUN Creatinine POC Creatinine Est Cr Clr Drug Dosing Est GFR ( Amer) Est GFR (Non-Af Amer) BUN/Creatinine Ratio Glucose POC Glucose POC Glucose (other) Estimat Average Glucose 111 Hemoglobin A1c 5.5 Calcium POC Ioniz Calcium Juan Jose Phosphorus Magnesium Total Bilirubin AST ALT Alkaline Phosphatase Total Creatine Kinase CK-MB (CK-2) CK/CKMB % Calc Troponin I Total Protein Albumin Globulin Albumin/Globulin Ratio Triglycerides Cholesterol LDL Cholesterol, Calc VLDL Cholesterol, Calc HDL Cholesterol Cholesterol/HDL Ratio Lipase TSH Urine Color Urine Appearance Urine pH Ur Specific [place] Urine Protein Urine Glucose (UA) Urine Ketones Urine Blood Urine Nitrite Urine Bilirubin Urine Urobilinogen Ur Leukocyte Esterase Urine WBC (Auto) Urine RBC (Auto) U Hyaline Cast (Auto) U Epithel Cells (Auto) Urine Bacteria (Auto) Nasal Screen MRSA (PCR) COVID-19 Eval Order SARS-CoV-2, RNA, NAAT PG Care Time/CCT Total # of Minutes Spent Total Time Spent with Patient: Total time spent is greater than 50% in coordination of care (as documented) at patient's floor/unit and/or counseling patient: Coding Level of Care Code 14252 Subseq Hosp Care Lvl [address] elevation (STEMI) myocardial infarction I21.02 Involved coronary artery: LAD coronary artery (1) ST elevation (STEMI) myocardial infarction Involved coronary artery: LAD coronary artery Qualified Code(s): I21.02 - ST elevation (STEMI) myocardial infarction involving left anterior descending coronary artery
[2020-10-30] MEDS ORDERED: fentaNYL citrate 100 MCG/2 ML VIAL ONE (11:43)
[2020-10-30] MEDS ORDERED: HEPARIN (PORCINE) 1000 UNIT/ML 10 ML (CATH LAB USE ONLY) ONE (11:43)
[2020-10-30] MEDS ORDERED: niCARdipine HCL INJ 2.5 MG/ML 10 ML AMP ONE (11:43)
[2020-10-30] MEDS ORDERED: NITROGLYCERIN/D5W 100MCG/ML 20ML SYR ONE (11:43)
[2020-10-30] MEDS ORDERED: MIDAZOLAM HCL 1 MG/ML 2ML VIAL ONE (11:43)
[2020-10-30] MEDS ORDERED: ADENOSINE IV SOLN 3 MG/ML 20 ML VIAL IV ONE (12:30)
--- NOTE | 2020-10-30 12:46 | Pre Anesthesia Assessment ---
Date of Service October 30, 2020 Pre Sedation Assessment Vital Signs Temp Pulse Pulse Resp BP BP Pulse Ox 10/30/20 11:36 99.0 F 77 16 124/85 99 10/30/20 10:00 80 17 142/78 H 97 10/30/20 09:00 76 22 128/76 96 10/30/20 08:00 98.2 F 80 19 135/74 95 10/30/20 07:00 84 24 129/79 95 10/30/20 06:00 80 19 124/81 95 10/30/20 05:00 77 21 126/80 95 10/30/20 04:00 98.2 F 73 18 126/80 96 10/30/20 03:00 72 18 125/83 96 10/30/20 02:00 71 17 128/82 96 10/30/20 01:00 72 19 124/79 96 10/30/20 00:00 98.2 F 72 19 129/78 96 10/29/20 23:00 71 21 126/83 95 10/29/20 22:00 74 23 133/76 95 10/29/20 21:00 77 25 H 138/80 97 10/29/20 20:00 74 22 156/82 H 97 10/29/20 19:45 76 24 147/86 H 97 10/29/20 19:30 75 23 132/81 96 10/29/20 19:15 77 24 138/82 96 10/29/20 19:00 73 27 H 144/81 H 96 10/29/20 18:15 81 27 H 140/91 96 10/29/20 18:00 74 26 H 129/79 96 10/29/20 17:45 80 28 H 127/73 96 10/29/20 17:30 77 22 116/78 97 10/29/20 17:15 78 19 128/85 97 10/29/20 17:05 78 25 H 131/82 97 10/29/20 17:03 78 22 96 10/29/20 16:45 83 27 H 131/76 97 10/29/20 16:31 78 29 H 126/91 98 10/29/20 16:15 71 18 142/81 H 98 10/29/20 16:00 98.1 F 77 25 H 141/77 H 97 10/29/20 15:50 82 10/29/20 15:45 76 30 H 145/85 H 97 10/29/20 15:30 78 45 H 146/83 H 98 10/29/20 15:15 83 18 98 10/29/20 15:00 77 27 H 96 10/29/20 14:45 80 26 H 125/77 98 10/29/20 14:30 73 25 H 141/86 H 98 10/29/20 14:16 85 27 H 139/84 97 10/29/20 14:00 82 30 H 142/89 H 98 10/29/20 13:46 81 10/29/20 13:23 97.8 F 76 25 H 137/80 98 10/29/20 13:15 97.8 F 79 23 137/80 96 Cardiovascular RRR, no murmur, no edema Respiratory normal respiratory effort, lungs clear to auscultation Pre-Sedation Airway Assessment Smoking Status: Never smoker Hx Sleep Apnea: Yes Hx Difficult Intubation: No Short, Thick Neck: Yes Thyromental Distance: > or= 3.5 Finger Breadths Oral Cavity: + WNL Mallampati Class: II ASA: ASA2 NPO Status Date of Last Intake of Fluids: 10/29/20 Time of Last Intake of Fluids: 23:55 Date of Last Intake of Solid Food: 10/29/20 Time of Last Intake of Solid Foods: 23:55 Procedure Planning Contraindications for Sedation: none Current Medications Reviewed: Yes Notes The planned sedation has been discussed with the patient. Informed Consent was obtained. I have identified the patient, determined the appropriateness of sedation and have assessed the patient immediately prior to the procedure. All medicine(s) and interventions are by my order.
--- NOTE | 2020-10-30 12:47 | Post Anesthesia Assessment ---
Date of Service October 30, 2020 Post Sedation Assessment Vital Signs Temp Pulse Pulse Resp BP BP Pulse Ox 10/30/20 11:36 99.0 F 77 16 124/85 99 10/30/20 10:00 80 17 142/78 H 97 10/30/20 09:00 76 22 128/76 96 10/30/20 08:00 98.2 F 80 19 135/74 95 10/30/20 07:00 84 24 129/79 95 10/30/20 06:00 80 19 124/81 95 10/30/20 05:00 77 21 126/80 95 10/30/20 04:00 98.2 F 73 18 126/80 96 10/30/20 03:00 72 18 125/83 96 10/30/20 02:00 71 17 128/82 96 10/30/20 01:00 72 19 124/79 96 10/30/20 00:00 98.2 F 72 19 129/78 96 10/29/20 23:00 71 21 126/83 95 10/29/20 22:00 74 23 133/76 95 10/29/20 21:00 77 25 H 138/80 97 10/29/20 20:00 74 22 156/82 H 97 10/29/20 19:45 76 24 147/86 H 97 10/29/20 19:30 75 23 132/81 96 10/29/20 19:15 77 24 138/82 96 10/29/20 19:00 73 27 H 144/81 H 96 10/29/20 18:15 81 27 H 140/91 96 10/29/20 18:00 74 26 H 129/79 96 10/29/20 17:45 80 28 H 127/73 96 10/29/20 17:30 77 22 116/78 97 10/29/20 17:15 78 19 128/85 97 10/29/20 17:05 78 25 H 131/82 97 10/29/20 17:03 78 22 96 10/29/20 16:45 83 27 H 131/76 97 10/29/20 16:31 78 29 H 126/91 98 10/29/20 16:15 71 18 142/81 H 98 10/29/20 16:00 98.1 F 77 25 H 141/77 H 97 10/29/20 15:50 82 10/29/20 15:45 76 30 H 145/85 H 97 10/29/20 15:30 78 45 H 146/83 H 98 10/29/20 15:15 83 18 98 10/29/20 15:00 77 27 H 96 10/29/20 14:45 80 26 H 125/77 98 10/29/20 14:30 73 25 H 141/86 H 98 10/29/20 14:16 85 27 H 139/84 97 10/29/20 14:00 82 30 H 142/89 H 98 10/29/20 13:46 81 10/29/20 13:23 97.8 F 76 25 H 137/80 98 10/29/20 13:15 97.8 F 79 23 137/80 96 Recovery Score Activity: Moves 4 extremities Respiration: Deep Breath/Cough Circulation: +/-20% PreAnes Value Consciousness: Fully Awake Oxygen Saturation: O2 needed for >90% Discharge Sedation Level of Care: Fast Track Phase II Post Sedation Plan On clinical assessment, the patient appears to have tolerated the sedation without complications. Patient is recovering as anticipated. Patient will continue to be monitored by nursing and may be discharged when sedation discharge criteria are met per below protocol. Upon Completions of procedure up to 15 minutes continue every 5 minute vital signs and the P.A.R. score; then discharge to a Phase I or Fast Track to Phase II per the following guidelines: * Discharge Patient to appropriate Phase II area if PAR is 8 or greater or return to pre- procedure baseline. The post - procedure orders will be as directed. * If PAR score is less than 8 or not return to pre-procedure baseline then patient will follow Phase I monitoring till PAR is reached for Phase II. The Phase I may be done in procedure room or may call to secure a Phase I area. * If naloxone or flumazenil are used for reversal, hold in Phase I for continued monitoring from when last reversal dose was given for a minimum of 60 minutes or longer pending the nurse and/or physician discretion of patient condition before discharge to Phase II. Please call the Sedation Physician to re-evaluate and complete post-note for discharge to Phase II area. Do NOT discharge from procedure sedation or Phase 1 until post- sedation evaluation note is complete by procedure /sedation MD Sedation Discharge Instructions to be given to the patient at discharge to home.
[2020-10-30] MEDS ORDERED: SODIUM CHLORIDE 0.9% 1000ML 1,000 ML IV SCH (13:00)
--- NOTE | 2020-10-30 13:01 | Cardiac Catheterization ---
[facility] Data: Meat Stocker Cardiac Status Clinical evaluation leading to the procedure CAD Presenation: STEMI Anginal Classification: CCS IV Heart Failure: NYHA Class: CCS II Cardiogenic Shock within 24 Hours: No Cardiac Arrest within 24 Hours: No Imaging Studies Past 6 Months: Yes Stress Studies Past 6 Months: No Diagnostic Physicians Name: Manoj Gonzalez MD Status: Elective Closure Device Percutaneous Entry Location: Radial Closure Device: Radial Band Recommendations: PCI without planned CABG PCI Indication: Staged PCI Lesion Segment Name: R-PAV branch Culprit Artery: No Stenosis Prior to Rx (%): 95 Chronic Total Occlusion: No IVUS: No FFR: No Pre-Procedure RUDDY Flow: 3 Previously Treated Lesion: No Lesion Complexity: Non-High/Non-C Lesion Length (mm): 10 Thrombus Present: No Bifurcation Lesion: No Guidewire Across Lesion: Stenosis Post-Procedure (%): 0 Post-Procedure RUDDY Flow: 3 Devices(s) Deployed: No Yes Intraprocedure Events Significant Disection: No Perforation: No Cardiac Cath Procedure Full Procedure Date October 30, 2020 Pre-Procedure Diagnosis Pre-Procedure Diagnosis: STEMI AUC Score AUC Score: 9 Post-Procedure Diagnosis Post-Procedure Diagnosis: Severe CAD, Successful PCI and Normal Intracardiac Pressures Procedure(s) Performed Procedure(s) Performed: Coronary Angiography, Left Heart Cath, PTCA and Fractional Flow [place] Last Sorter Manoj Gonzalez MD High Risk Case Manager(s) Showers Estimated Blood Loss Estimated Blood Loss: 10 Medication(s) Medication(s): Fentanyl, Heparin, Lidocaine 1%, Nicardipine, Nitroglycerin and Versed Summary of Findings Indication: Staged FFR/PCI of RCA. Post primary PCI for anterior STEMI yesterday with 2 NEHEMIAH to LAD. Access: 6 Fr left radial artery under ultrasound guidance Catheters: JR4 guide Findings: RCA -dominant, medium caliber, 50% mid stenosis, 40% earlydistal stenosis. 95% focal stenosis in proximal right posterior AV branch LVEDP - 8 -- PCI -- Antithrombotic therapy: Heparin, Ticagrelor Procedure: RCA cannulated with JR4 guide Marriage And Family Teacher 50 wire passed across lesion into distal PLB Right posterior AV branch lesion predilated with 2.0 compliant balloon Stenosis expanded appropriately with no evidence of dissection. After IC vasodilators vessel still appeared small, <2.25 mm and decision made to avoid stent placement. ACIST FFR catheter placed across mid and early distal stenosis Pd/Pa 0.94 FFR 0.85 Post procedure RUDDY 3 flow, posterior AV branch well-expanded with no evidence of significant dissection no apparent cardiac complications. Arterial Closure: TR band Summary: 1. Successful angioplasty of small right posterior AV branch with 2.0 balloon (vessel too small for stenting). 2. Nonobstructive moderate (50 to 60%) mid RCA disease (FFR 0.85). Recommendations: To PCU for continued monitoring Continue dual-antiplatelet therapy with ASA/ticagrelor for at least 1 year Hemodynamics Rest Ao:: 130/94/110 Final Ao: 136/93/112 LV: 124/8 Recommendations Recommendations: PCI without planned CABG Specimens Specimens: None Radiation Exposure (mGy) 1031 Contrast (mls) 70 Fluids (cc crystalloids) Fluids (cc crystalloids): 375 Drains Drains: none Anesthesia moderate 7972-7043 Procedural Complication(s) None Disposition PCU I attest to the content of the Intraoperative Record and any orders documented t herein. Any exceptions are noted below. [facility] Card Cath Procedure Codes Cardiac Catheterization Procedure 1: Cardiovascular Cath Procedures: 89272 Left Heart Cath (+/-LV) Procedure 2: Cardiovascular Cath Procedures: 25094 (Doppler) Pressure Wire Moderate Sedation Procedure 1: Sedation/Anesthesia: 94342 Mod Sedation by the same physician;Init15 Min Child Age 5 & Up Procedure 2: Sedation/Anesthesia: 13592 Mod Sedation by the same physician; Ea [id number] Minutes Angioplasty Procedure 1: Cardiovascular Angioplasty Procedures: 56968 PTCA; Single mafor coronary artery or branch RC LC LD PG Care Time/CCT Total # of Minutes Spent Total Time Spent with Patient: Total time spent is greater than 50% in coordination of care (as documented) at patient's floor/unit and/or counseling p atient:
[2020-10-30 13:47] VITALS: TEMP 98.2
--- NOTE | 2020-10-30 14:44 | Hospitalist Progress Note ---
Date of Service October 30, 2020 Assessment & Plan (1) ACS (acute coronary syndrome): Plan: NSTEMI -Admitted to ICU post cardiac cath -Presented to ED with reports of right-sided chest, neck, axilla pain. EKG showed borderline anterior ST elevations with peaked T waves. Heart alert called and patient taken to cardiac [facility] emergently. Received 2 NEHEMIAH to LAD, also noted to have RCA disease, likely will return to cardiac [facility] for staged cardiac cath for treatment of RCA disease. -ASA, ticagrelor, metoprolol, lisinopril, atorvastatin, ordered by interventional cardiology -Echo-large sized apical, septal, anteroseptal and anterior wall motion abnormality with hypokinesis to akinesis of the segments, EF 50 to 55%, the RV cavity size is normal there is trace tricuspid regurgitation -Troponin went up to 36 and which is expected -Has hyperlipidemia with triglyceride increased to 354, cholesterol 205, LDL 102 and HDL low at 32 -Appreciate cardiology input and recommendation -Status post second cardiac cath today with angioplasty of the RCA -Likely be discharged tomorrow (2) DARA on CPAP: Plan: -CPAP as per home settings (3) DVT prophylaxis: Plan: -SCDs Plan: Acute discharge tomorrow Admission and Anticipated Discharge Date Admission Date: October 29, 2020 Subjective 10/30/2020 The patient was seen in and examined in ICU in presence of the family members He is status post second cardiac cath with angioplasty of the RCA Denies any symptoms Review of Systems Review of Systems: All systems reviewed and are unremarkable except as noted below Cardiovascular: Additional Comments: No cardiac symptoms Physical Exam Physical Exam: Lying in bed comfortably Constitutional: well developed, well nourished and + obese; not ill appearing Eyes: PERRL, conjunctivae normal, anicteric sclerae ENMT: external ear and nose normal, oropharynx normal Neck: trachea midline, no thyromegaly Respiratory: normal respiratory effort, lungs clear to auscultation Cardiovascular: Rate/Rhythm: regular rate and regular rhythm Heart Sounds: normal S1 and normal S2; no murmur Gastrointestinal (Abdomen): normal bowel sounds, soft, nontender, no hepatosplenomegaly Musculoskeletal: No acute arthritis in any joint Neurologic: Alert, awake and oriented x3 Results & Data Results & Data ([facility]) Vital Signs (Past 12 Hours) Vital Signs Temp Pulse Pulse Resp BP BP Pulse Ox 10/30/20 13:30 85 22 105/81 98 10/30/20 13:15 88 23 111/73 99 10/30/20 13:10 36.8 C 78 17 10/30/20 12:57 77 16 167/85 H 98 10/30/20 12:45 79 16 147/84 H 98 10/30/20 11:36 37.2 C 77 16 124/85 99 10/30/20 11:00 75 22 132/75 97 10/30/20 10:00 80 17 142/78 H 97 10/30/20 09:00 76 22 128/76 96 10/30/20 08:00 36.8 C 80 19 135/74 95 10/30/20 07:00 84 24 129/79 95 10/30/20 06:00 80 19 124/81 95 10/30/20 05:00 77 21 126/80 95 10/30/20 04:00 36.8 C 73 18 126/80 96 10/30/20 03:00 72 18 125/83 96 Laboratory Results Short CBC 10/30/20 Range/Units 04:51 WBC 12.66 H (4.8-10.8) K/uL Hgb 15.0 (14.0-18.0) g/dL Hct 43.6 (42-52) % Plt Count 218 (130-400) K/uL BMP 10/30/20 04:51 Sodium 139 Potassium 4.2 Chloride 108 H Carbon Dioxide 27 BUN 14 Creatinine 0.99 Glucose 109 H Calcium 8.2 L Cardiac Enzymes 10/29/20 10/29/20 Range/Units 16:45 23:21 Troponin I 9.300 H* 36.100 H* (0-0.045) ng/ml Urine 10/29/20 Range/Units 15:30 Urine Color Yellow Urine Appearance Clear (Clear) Urine pH 5.5 (4.5-7.5) Ur Specific [place] 1.044 H (1.000-1.030) Urine Protein 1+ H (Negative) Urine Glucose (UA) Negative (Negative) Medications Administered Current Inpatient Medications Aspirin (Aspirin 81 Mg Ectab) 81 mg PO [facility] Stop: 11/29/20 08:59 Last Admin: 10/30/20 08:05 Dose: 81 mg Documented by: Atorvastatin Calcium (Atorvastatin 40 Mg Tab) 80 mg PO [facility] Stop: 11/29/20 08:59 Last Admin: 10/30/20 08:06 Dose: 80 mg Documented by: Sodium Chloride (Nss 1000ml) 1,000 mls @ 100 mls/hr IV .Q10H [facility] Stop: 10/30/20 20:29 Last Admin: 10/30/20 13:27 Dose: 100 mls/hr Documented by: Lisinopril (Lisinopril 5 Mg Tab) 5 mg PO QAM [facility] Stop: 11/29/20 08:59 Last Admin: 10/30/20 08:06 Dose: 5 mg Documented by: Metoprolol Tartrate (Metoprolol Tartrate 25 Mg Tab) 25 mg PO BID [facility] Stop: 11/29/20 20:59 Miscellaneous (Icu Protocol For Hyperglycemia) 1 ea N/A PRN PRN; Protocol PRN Reason: Hyperglycemia Protocol Stop: 10/31/20 13:25 Nitroglycerin (Nitroglycerin Sl 0.4 Mg/Tab Tab) 0.4 mg SL Q5M PRN PRN Reason: Chest Pain Last Admin: 10/29/20 11:19 Dose: 0.4 mg Documented by: Ondansetron HCl (Ondansetron Inj 2 Mg/Ml 2 Ml Vial) 4 mg IV Q6H PRN PRN Reason: Nausea And Vomiting Stop: 11/28/20 13:20 Ticagrelor (Ticagrelor 90 Mg Tab) 90 mg PO BID [facility] Stop: 11/29/20 20:59
[2020-10-30] MEDS: TICAGRELOR 90 MG TAB PO SCH (20:35)
[2020-10-31 05:15] LABS: Basophils # (auto) 0.03 K/uL (0-0.2); Basophils % (auto) 0.3 %; Eosinophils # (auto) 0.08 K/uL (0-0.5); Eosinophils % (auto) 0.7 %; Hematocrit (blood only) 44.3 % (42-52); Hemoglobin 15.3 g/dL (14.0-18.0); Immature Granulocytes # (auto) 0.03 K/uL (0.00-0.02); Immature Granulocytes % (auto) 0.3 %; Lymphocytes # (auto) 2.34 K/uL (1.2-3.4); Lymphocytes % (auto) 20.7 %; Mean Corpuscular Hemoglobin 32.3 pg (25-34); Mean Corpuscular Hgb Conc 34.5 g/dL (32-36); Mean Corpuscular Volume 93.5 fL (80-100); Mean Platelet Volume 10.1 fL (7.4-10.4); Monocytes # (auto) 1.17 K/uL (0.11-0.59); Monocytes % (auto) 10.3 %; Neutrophils # (auto) 7.67 K/uL (1.4-6.5); Neutrophils % (auto) 67.7 %; Platelet Count 226 K/uL (130-400); RDW Standard Deviation 40.7 fL (36.4-46.3); Red Blood Count 4.74 M/uL (4.7-6.1); White Blood Count 11.32 K/uL (4.8-10.8)
[2020-10-31 05:42] LABS: BUN Creatinine Ratio 12.2 (10-20); Calcium 8.2 mg/dl (8.5-10.1); Creatinine Clr Calc Pharmacy 123.1 ml/min; Est GFR (African American) 100.1 ml/min; Est GFR (Non-African American) 86.4 ml/min; Magnesium 2.2 mg/dl (1.8-2.4); Potassium 3.9 mmol/L (3.5-5.1)
[2020-10-31 05:58] LABS: Phosphorus 2.8 mg/dl (2.5-4.9); Troponin I 16.4 ng/ml (0-0.045)
[2020-10-31] MEDS: ATORVASTATIN 40 MG TAB PO SCH (08:05)
[2020-10-31] MEDS: ASPIRIN 81 MG ECTAB PO SCH (08:06)
[2020-10-31] MEDS: METOPROLOL TARTRATE 25 MG TAB PO SCH (08:06)
[2020-10-31] MEDS: TICAGRELOR 90 MG TAB PO SCH (08:06)
[2020-10-31] MEDS: lisinopril 5 MG TAB PO SCH (08:06)
[2020-10-31 08:20] VITALS: O2SAT 96
--- NOTE | 2020-10-31 09:41 | Critical Care Progress Note ---
Date of Service October 31, 2020 Assessment & Plan (1) ST elevation (STEMI) myocardial infarction involving left anterior desc ending coronary artery: Plan: 40-year-old male with a history of obesity and hypertension who is in the ICU now status post PCI x2 to the mid LAD. ST elevation [place] -On statin, LUCI, beta-princess Stable for discharge per cardiology (2) ACS (acute coronary syndrome): (3) DARA on CPAP: Admission and Anticipated Discharge Date Admission Date: October 29, 2020 Subjective No overnight events Physical Exam Physical Exam: General: Alert. nontoxic. Skin: Warm, dry, Head: Atraumatic Ears, nose, mouth and throat: airway patent Cardiovascular: Normal peripheral perfusion Respiratory: no respiratory distress Gastrointestinal: Non distended Musculoskeletal: No deformity Results & Data Results & Data ([facility]) Vital Signs (Past 12 Hours) Vital Signs Temp Pulse Resp BP Pulse Ox 10/31/20 08:19 36.8 C 10/31/20 08:00 89 10/31/20 07:15 74 18 126/78 96 10/31/20 05:15 79 15 107/71 97 10/31/20 04:15 73 21 117/76 95 10/31/20 03:15 75 18 113/74 97 10/31/20 02:15 82 21 110/77 96 10/31/20 01:15 82 23 110/76 97 10/31/20 00:15 83 19 116/76 95 10/30/20 23:15 78 23 116/77 96 10/30/20 22:15 83 22 115/76 94 Coding Level of Care Code 08559 Subseq Hosp Care Lvl [address] elevation (STEMI) myocardial infarction involving left anterior descending coronary artery I21.02 ACS (acute coronary syndrome) I24.9 DARA on CPAP G47.33; Z99.89
--- NOTE | 2020-10-31 10:16 | Hospitalist Progress Note ---
Date of Service October 31, 2020 Assessment & Plan (1) ACS (acute coronary syndrome): Plan: STEMI -Admitted to ICU post cardiac cath -Presented to ED with reports of right-sided chest, neck, axilla pain. EKG showed borderline anterior ST elevations with peaked T waves. Heart alert called and patient taken to cardiac [facility] emergently. Received 2 NEHEMIAH to LAD, also noted to have RCA disease, likely will return to cardiac [facility] for staged cardiac cath for treatment of RCA disease. -ASA, ticagrelor, metoprolol, lisinopril, atorvastatin, ordered by interventional cardiology -Echo-large sized apical, septal, anteroseptal and anterior wall motion abnormality with hypokinesis to akinesis of the segments, EF 50 to 55%, the RV cavity size is normal there is trace tricuspid regurgitation -Troponin went up to 36 and which is expected and decreased to 16 today 10/06 -Has hyperlipidemia with triglyceride increased to 354, cholesterol 205, LDL 102 and HDL low at 32 -Appreciate cardiology input and recommendation -Status post second cardiac cath today with angioplasty of the RCA 10/30/2020 -Was seen by the forestry support specialist and brand lead today -He will be discharged today and he will have a follow-up appointment with Dr. Gonzalez in 2 weeks -He will be discharged on aspirin, atorvastatin, lisinopril, metoprolol tartrate and Brilinta Hyperlipidemia High triglycerides and cholesterol and borderline low HDL Statins has been prescribed (2) DARA on CPAP: Plan: -CPAP as per home settings -Advised to continue with his CPAP and advised to reduce weight (3) DVT prophylaxis: Plan: -SCDs Plan: He will be discharged today Admission and Anticipated Discharge Date Admission Date: October 29, 2020 Subjective 10/30/2020 The patient was seen in and examined in ICU in presence of the family members He is status post second cardiac cath with angioplasty of the RCA Denies any symptoms 10/31/2020 The patient was seen and examined in ICU He has been feeling much better and denies any symptoms He will be discharged home today Review of Systems Review of Systems: All systems reviewed and are unremarkable except as noted below Cardiovascular: Additional Comments: No cardiac symptoms Physical Exam Physical Exam: Lying in bed comfortably Constitutional: well developed, well nourished and + obese; not ill appearing Eyes: PERRL, conjunctivae normal, anicteric sclerae ENMT: external ear and nose normal, oropharynx normal Neck: trachea midline, no thyromegaly Respiratory: normal respiratory effort, lungs clear to auscultation Cardiovascular: Rate/Rhythm: regular rate and regular rhythm Heart Sounds: normal S1 and normal S2; no murmur Gastrointestinal (Abdomen): normal bowel sounds, soft, nontender, no hepatosplenomegaly Musculoskeletal: No acute arthritis in any joint Neurologic: PERRL, EOMI, accommodation nl, no face palsy, no dysarthria Psychiatric: A+Ox3, euthymic affect Lymphatic: no cervical or axillary lymphadenopathy Results & Data Results & Data ([facility]) Vital Signs (Past 12 Hours) Vital Signs Temp Pulse Resp BP Pulse Ox 10/31/20 08:19 36.8 C 10/31/20 08:00 89 10/31/20 07:15 74 18 126/78 96 10/31/20 05:15 79 15 107/71 97 10/31/20 04:15 73 21 117/76 95 10/31/20 03:15 75 18 113/74 97 10/31/20 02:15 82 21 110/77 96 10/31/20 01:15 82 23 110/76 97 10/31/20 00:15 83 19 116/76 95 10/30/20 23:15 78 23 116/77 96 10/30/20 22:15 83 22 115/76 94 Laboratory Results Short CBC 10/31/20 Range/Units 04:43 WBC 11.32 H (4.8-10.8) K/uL Hgb 15.3 (14.0-18.0) g/dL Hct 44.3 (42-52) % Plt Count 226 (130-400) K/uL BMP 10/31/20 04:43 Sodium 137 Potassium 3.9 Chloride 107 Carbon Dioxide 26 BUN 13 Creatinine 1.07 Glucose 95 Calcium 8.2 L Cardiac Enzymes 10/31/20 Range/Units 04:43 Troponin I 16.400 H* (0-0.045) ng/ml Medications Administered Current Inpatient Medications Aspirin ([facility] 81 Mg Ectab) [facility]: 11/29/20 08:59 Last Admin: 10/31/20 08:06 Dose: 81 mg Documented by: Atorvastatin Calcium (Atorvastatin 40 Mg Tab) [facility] Stop: 11/29/20 08:59 Last Admin: 10/31/20 08:05 Dose: 80 mg Documented by: Lisinopril (Lisinopril 5 Mg Tab) 5 mg PO QAM [facility] Stop: 11/29/20 08:59 Last Admin: 10/31/20 08:06 Dose: 5 mg Documented by: Metoprolol Tartrate (Metoprolol Tartrate 25 Mg Tab) 25 mg PO BID [facility] Stop: 11/29/20 20:59 Last Admin: 10/31/20 08:06 Dose: 25 mg Documented by: Miscellaneous (Icu Protocol For Hyperglycemia) 1 ea N/A PRN PRN; Protocol PRN Reason: Hyperglycemia Protocol Stop: 10/31/20 13:25 Nitroglycerin (Nitroglycerin Sl 0.4 Mg/Tab Tab) 0.4 mg SL Q5M PRN PRN Reason: Chest Pain Last Admin: 10/29/20 11:19 Dose: 0.4 mg Documented by: Ondansetron HCl (Ondansetron Inj 2 Mg/Ml 2 Ml Vial) 4 mg IV Q6H PRN PRN Reason: Nausea And Vomiting Stop: 11/28/20 13:20 Ticagrelor (Ticagrelor 90 Mg Tab) 90 mg PO BID [facility] Stop: 11/29/20 20:59 Last Admin: 10/31/20 08:06 Dose: 90 mg Documented by:
--- NOTE | 2020-10-31 11:01 | Cardiology Progress Note ---
Date of Service October 31, 2020 Assessment & Plan (1) ST elevation (STEMI) myocardial infarction: Plan: --status post LAD PCI with 2 overlapping NEHEMIAH Post POBA to right posterior AV branch 2. Preserved LV function 3. Dyslipidemia 4. Family history of premature CAD From a cardiac standpoint okay with discharge today. Home on: DAPT with aspirin, ticagrelor Continue current metoprolol, lisinopril. Continue current statin Follow-up with me in 2 weeks on discharge. Admission and Anticipated Discharge Date Admission Date: October 29, 2020 Subjective Feeling well. No recurrent chest pain. No new complaints. Review of Systems Review of Systems: All systems reviewed & are unremarkable except as noted in HPI & below Physical Exam Physical Exam: General: Comfortable, no acute distress HEENT: Sclerae anicteric Lungs: Clear to auscultation bilaterally Cardiac: Regular rate and rhythm, no murmurs. Abdomen: Soft, nontender Extremities: Warm, well perfused, no edema. Ecchymosis involving right radial artery access site. Left radial artery access site with no ecchymosis, hematoma. Distal pulse and sensation intact. Skin: No rashes or lesions. Neuro: Nonfocal Psych: Alert orient x3, normal affect and mood Results & Data ([facility]) Vital Signs (Past 12 Hours) Vital Signs Temp Pulse Resp BP Pulse Ox 10/31/20 08:19 98.2 F 10/31/20 08:00 89 10/31/20 07:15 74 18 126/78 96 10/31/20 05:15 79 15 107/71 97 10/31/20 04:15 73 21 117/76 95 10/31/20 03:15 75 18 113/74 97 10/31/20 02:15 82 21 110/77 96 10/31/20 01:15 82 23 110/76 97 10/31/20 00:15 83 19 116/76 95 10/30/20 23:15 78 23 116/77 96 PG Care Time/CCT Total # of Minutes Spent Total Time Spent with Patient: Total time spent is greater than 50% in coordination of care (as documented) at patient's floor/unit and/or counseling patient: Coding Level of Care Code 42704 Subseq Hosp Care Lvl [address] elevation (STEMI) myocardial infarction I21.02 Involved coronary artery: LAD coronary artery (1) ST elevation (STEMI) myocardial infarction Involved coronary artery: LAD coronary artery Qualified Code(s): I21.02 - ST elevation (STEMI) myocardial infarction involving left anterior descending coronary artery
[2020-10-31 11:43] VITALS: BP 136/72; PULSE 77
--- NOTE | 2020-10-31 17:15 | Discharge Summary ---
Date of Service October 31, 2020 Admission HPI Per Admitting Provider 40-year-old male with PMH DARA on CPAP and other problems listed below who presents the ED for evaluation of chest pain. Patient reports that yesterday he was chopping wood when he developed a right-sided neck pain. He thought it was secondary to his activity. This morning, patient started chopping wood again and the right side neck pain returned. He reports he then developed a right- sided chest pain with radiation to the right axilla. Patient reports associated diaphoresis and shortness of breath. Denies nausea, lightheadedness, dizziness, syncopal event. He then presented to the ED for further evaluation. In the ED, EKG showed borderline anterior ST elevations with peaked T waves. Heart alert was called and patient was taken to cardiac [facility] for emergent catheterization. He received 2 drug-eluting stents to LAD. He was also noted to have RCA disease as well. Likely will return to [facility] [place] for staged cardiac cath to treat RCA disease. Patient was seen and examined in the ICU post cardiac cath. Denies chest pain. He is hemodynamically stable. Patient reports he otherwise has been feeling well recently. No other recent illnesses, fevers, chills. Denies abdominal pain, vomiting, diarrhea. No urinary symptoms. Admission Exam Per Admitting Provider Constitutional: WD/WN, vitals as above Eyes: PERRL, conjunctivae normal, anicteric sclerae ENMT: external ear and nose normal, oropharynx normal Respiratory: normal respiratory effort, lungs clear to auscultation Cardiovascular: Rate/Rhythm: regular rate and regular rhythm Vessels: normal peripheral pulses Extremities: no edema Gastrointestinal (Abdomen): normal bowel sounds, soft, nontender, no hepatosplenomegaly Musculoskeletal: no cyanosis or clubbing, extremities motor strength 5/[address] to right wrist, CSM checks intact Skin: no rashes, warm and dry Neurologic: PERRL, EOMI, accommodation nl, no face palsy, no dysarthria Psychiatric: A+Ox3, euthymic affect Principal Diagnosis STEMI, status post LAD PCI with 2 overlapping NEHEMIAH and POB A2 right posterior AV branch, dyslipidemia, DARA on CPAP Discharge Exam Constitutional well developed, well nourished and + obese; not ill appearing Eyes PERRL, conjunctivae normal, anicteric sclerae ENMT external ear and nose normal, oropharynx normal Neck trachea midline, no thyromegaly Respiratory normal respiratory effort, lungs clear to auscultation Cardiovascular Rate/Rhythm: regular rate and regular rhythm Heart Sounds: normal S1 and normal S2; no murmur Gastrointestinal (Abdomen) normal bowel sounds, soft, nontender, no hepatosplenomegaly Neurologic PERRL, EOMI, accommodation nl, no face palsy, no dysarthria Psychiatric A+Ox3, euthymic affect Lymphatic no cervical or axillary lymphadenopathy Discharge Data Allergies Allergy/AdvReac Type Severity Reaction Status Date / Time No Known Drug Allergies Allergy Unknown NONE Verified 10/29/20 13:46 Consultations 10/29/20 11:33 ED Decision to Admit Stat 10/29/20 13:28 Consult Cardiac Rehabilitation Routine Consult Spray Gunner Routine 10/29/20 14:14 Consult Cardiology Routine Procedures Performed Operation Date: 10/29/20 11:30 Actual Procedures p Aspiration/PCI w/NEHEMIAH for Stemi - Breezy Gonzalez MD s Cath, Left with Cors and Vent - Breezy Gonzalez MD s IVUS Coronary Single Vessel - Breezy Gonzalez MD Operation Date: 10/30/20 11:30 Actual Procedures s Fraction Flow [place] SGL Ves - Breezy Gonzalez MD p POBA SGL Vessel - Breezy Gonzalez MD s Cath, Coronaries ONLY (no LV) - Breezy Gonzalez MD s Ultrasound Vascular Access - Breezy Gonzalez MD Ordered Studies 10/29/20 11:27 CL Cath Imgs for PACS use only Stat 10/29/20 14:45 CL IVUS Coronary Single Vessel Routine 10/30/20 11:36 CL Cath Imgs for PACS use only Stat Hospital Course (1) ACS (acute coronary syndrome): STEMI -Admitted to ICU post cardiac cath -Presented to ED with reports of right-sided chest, neck, axilla pain. EKG showed borderline anterior ST elevations with peaked T waves. Heart alert called and patient taken to cardiac [facility] [place] emergently. Received 2 NEHEMIAH to LAD, also noted to have RCA disease, likely will return to cardiac [place] for staged cardiac cath for treatment of RCA disease. -ASA, ticagrelor, metoprolol, lisinopril, atorvastatin, ordered by interventional cardiology -Echo-large sized apical, septal, anteroseptal and anterior wall motion abnormality with hypokinesis to akinesis of the segments, EF 50 to 55%, the RV cavity size is normal there is trace tricuspid regurgitation -Troponin went up to 36 and which is expected and decreased to 16 today 10/31/2020 -Has hyperlipidemia with triglyceride increased to 354, cholesterol 205, LDL 102 and HDL low at 32 -Appreciate cardiology input and recommendation -Status post second cardiac cath today with angioplasty of the RCA 10/30/2020 -Was seen by the cake press operator and regional office coordinator today -He will be discharged today and he will have a follow-up appointment with Dr. Gonzalez in 2 weeks -He will be discharged on aspirin, atorvastatin, lisinopril, metoprolol tartrate and Brilinta Hyperlipidemia High triglycerides and cholesterol and borderline low HDL Statins has been prescribed (2) DARA on CPAP: -CPAP as per home settings -Advised to continue with his CPAP and advised to reduce weight (3) DVT prophylaxis: -SCDs He will be discharged today Total Time Total Time Spent Total Time Spent (In Minutes): 35 minutes Discharge Plan Discharge Items Patient Disposition: Home - Self-Care Reason For Visit: RIGHT SIDED CHEST PAIN,SWEATING,DIZZY Discharge Diagnosis: STEMI, status post LAD PCI with 2 overlapping NEHEMIAH and POB A2 right posterior AV branch, dyslipidemia, DARA on CPAP Condition on Discharge: Good Activity: Resume your previous activity Non-emergency contact: Primary Care Provider Call non-emergency contact if: you have any medication questions and your symptoms worsen Follow-up/Referrals: iRchi Mitchell MD [Primary Care Provider] - (Date & Time 11/03/2020 11:00 AM Provider Brionna Humphreys, Department [facility] ) Diet: Heart Healthy Addtl Attending Provider Instructions: Please take your medications as directed Please make an appointment with Dr. Gonzalez in 2 weeks Addtl Time Lock Expert Provider Instructions: ACTIVITY RECOMMENDATIONS: Excess manipulation of the wrist should be avoided for the next 24-48 hours. * No lifting over 2 pounds (approximately a 1/2 gallon of milk) with the utilize d arm for 24 hours. * No strenuous activity such as bowling or tennis for 3 days. * Keep the site of the procedure covered with a bandage for 24 hours. *You may shower the day after the procedure. Do not take a tub bath or submerge the puncture site in water for the next 3 days. *Do not operate any motorized equipment for 3 days. SPECIAL CARE INSTRUCTIONS: The site may be slightly bruised and sore following your procedure. Should any of the following occur, contact the Dr. who performed your procedure. 1. Redness/inflammation, swelling, chills, or fever, or colored drainage at procedure site within 3-7 days after your procedure. 2. Coldness, discoloration, ongoing numbness, severe pain, or swelling. Expect mild tingling of hand and tenderness at the puncture site for up to three days. If this persists beyond three days, or other symptoms develop, notify the Dr. who performed your procedure. BLEEDING: If the procedure site on your wrist begins to bleed, do not panic 1. Place 1 or 2 fingers firmly just slightly above the insertion site to stop the bleeding. You may be able to feel your pulse as you hold pressure. 2. Lift your finger after 5 minutes to see if the bleeding has stopped. 3. Once the bleeding has stopped, gently wipe the wrist area clean with a bandage. * If the bleeding from your wrist does not stop after 10 minutes, or if there is a large amount of bleeding or spurting, call 911 (do not drive yourself to the hospital). SKIN IRRITATION: * You may experience some redness and/or swelling in the area where radiation was administered. If any skin irritation occurs, please contact your family physician. FOLLOW UP VISIT: Keep any scheduled doctor appointments. Pending Studies at Discharge: No Stand-Alone Forms: My [facility] [employer], Smoking Cessation Medications and DC Order Prescriptions: New atorvastatin 40 mg Tablet 80 mg PO QAM 30 Days Qty: 60 RF: 0 aspirin 81 mg Tablet,Delayed Release (Dr/Ec) 81 mg PO QAM 30 Days Qty: 30 RF: 0 nitroglycerin [Nitrostat] 0.4 mg Tablet, Sublingual 0.4 mg sublingual Q5M PRN (Reason: chest pain) 30 Days Qty: 25 RF: 0 lisinopril [Zestril] 5 mg Tablet 5 mg PO QAM 30 Days Qty: 30 RF: 0 metoprolol tartrate 25 mg Tablet 25 mg PO BID 30 Days Qty: 60 RF: 0 Brilinta 90 mg Tablet 90 mg PO BID 30 Days Qty: 60 RF: 0 Discharge Orders: Discharge Order (Routine); Ordered 10/31/20 Ordered By: Jimbo Reddy Admission Data Admit Date/Time: 10/29/20 13:28 Attending Provider: Jimbo Reddy Admit Provider: Breezy Gonzalez Primary Care Provider: Richi Mitchell Other Providers: Jimbo Reddy ; Flako Diaz ; Breezy Gonzalez Other Interventions: Discharge Summary Assessment (RN) Last Done: 10/31/20 11:41
== END 2020-10-31 12:18 | disposition home or self-care (01) | DRG 247 ==
LOC: ED 10:58 → CC 11:43 → 1E 11:43
PROC: CLB.CCO (2020-10-30 11:30)